=== PATIENT | female | born 1990 | race African-American/Black ===

== ENCOUNTER 2016-12-01 01:02 | Emergency (ER) | payer MEDICAID ==
--- NOTE | 2016-12-01 03:49 | ER Document Report ---
ED GI/ - General Mode of Arrival: Ambulatory Information source: Patient - HPI Patient complains to provider of: Other - see narrative Timing/Duration: Persistent Associated symptoms: Other - see narrative Similar symptoms previously: No Recently seen / treated by doctor: No - General Chief Complaint: Vaginal Pain Stated Complaint: VAGINAL PAIN Notes: Patient is a 26-year-old female that presents to the emergency department today for complaints of dysuria, vaginal discharge with odor, and urinary frequency. Patient states she is sexually active. Patient states she is concerned about possible STIs. Patient denies any abdominal pain, vomiting, or diarrhea. (HAN BOSWELL) - Related Data Allergies/Adverse Reactions: acetaminophen [From Vicodin] Allergy (Verified 04/10/13 10:12) hydrocodone bitartrate [From Vicodin] Allergy (Verified 04/10/13 10:12) Past Medical History - General Information source: Patient Last Menstrual Period: [id number] - Social History Smoking Status: Current Every Day Smoker Cigarette use (# per day): Yes Chew tobacco use (# tins/day): No Frequency of alcohol use: None Drug Abuse: None Lives with: Family Family History: Reviewed & Not Pertinent Patient has suicidal ideation: No Patient has homicidal ideation: No Pulmonary Medical History: Reports: Hx Pneumonia Neurological Medical History: Reports: Hx Migraine Renal/ Medical History: Reports: Hx Ovarian Cysts Musculoskeltal Medical History: Reports Hx Musculoskeletal Trauma Psychiatric Medical History: Reports: Hx Attention Deficit Hyperactivity Disorder, Hx Bipolar Disorder Traumatic Medical History: Reports: Hx Fractures Past Surgical History: Reports: Hx Adenoidectomy, Hx Tonsillectomy - 2002 adennoids - Immunizations Immunizations up to date: Yes Hx Diphtheria, Pertussis, Tetanus Vaccination: Yes Review of Systems - Review of Systems Constitutional: No symptoms reported EENT: No symptoms reported Cardiovascular: No symptoms reported Respiratory: No symptoms reported Gastrointestinal: denies: Abdominal pain, Diarrhea, Vomiting Genitourinary: See HPI, Burning, Dysuria, Discharge, Frequency, Pain Female Genitourinary: No symptoms reported Musculoskeletal: No symptoms reported Skin: No symptoms reported Hematologic/Lymphatic: No symptoms reported Neurological/Psychological: No symptoms reported -: Yes All other systems reviewed and negative Physical Exam - Genitourinary External exam: Normal, Other - no ulcers Speculum exam: Vaginal discharge - cottage cheese like - Vital signs Vitals: Temp Pulse Resp BP Pulse Ox 97.9 F 88 20 124/77 98 12/01/16 01:10 12/01/16 01:10 12/01/16 01:10 12/01/16 01:10 12/01/16 01:10 (HAN BOSWELL) (TANNER SEARS) - Notes Notes: Physical Exam: General: Alert, appears well. HEENT: Normocephalic. Atraumatic. PERRL. Extraocular movements intact. Oropharynx clear. Neck: Supple. Non-tender. Respiratory: No respiratory distress. Clear and equal breath sounds bilaterally. Cardiovascular: Regular rate and rhythm. Abdominal: Obese. Non-tender. No distension. Normal Bowel Sounds. Back: Non-tender. No deformity or step off. Extremities: Moves all four extremities. Upper extremities: Normal inspection. Non-tender. Normal color. Normal ROM. Normal temperature. Lower extremities: Normal inspection. Non-tender. No edema. Normal color. Normal ROM. Normal temperature. Neurological: Normal cognition. AAOx4. Normal speech. Psychological: Normal affect. Normal Mood. Skin: Warm. Dry. Normal color. (HAN BOSWELL) Course - Re-evaluation Re-evalutation: 12/01/16 Patient is a 26-year-old female who comes in with vaginal discharge. States it feels like a yeast infection and BV as she is itching and has a follow-up odor. Patient like to be tested for STDs but does not want to wait for results of gonorrhea and Chlamydia. Patient will be initiated with fluconazole and Flagyl. Follow-up with PMD. Return if any worsening or concerning symptoms. Patient will be called gonorrhea and chlamydia testing is positive. (TANNER SEARS) - Vital Signs Vital signs: Temp Pulse Resp BP Pulse Ox 97.9 F 78 16 107/62 100 12/01/16 01:10 12/01/16 05:11 12/01/16 05:11 12/01/16 05:11 12/01/16 05:11 (HAN BOSWELL) (TANNER SEARS) - Laboratory Laboratory results interpreted by me: 12/01/16 03:33 Ur Leukocyte Esterase MODERATE H Discharge - Discharge Clinical Impression: Bacterial vaginosis, Yeast infection Condition: Stable Disposition: ADMITTED INPATIENT Instructions: Vaginosis, Bacterial ([facility]), Vaginal Yeast Infection ([facility]) Prescriptions: Fluconazole [Diflucan] 150 mg PO ONCE PRN #1 tablet PRN Reason: Metronidazole [Flagyl 500 mg Tablet] 500 mg PO BID #14 tablet Scribe Attestation: 12/01/16 05:29 I personally performed the services described in the documentation, reviewed and edited the documentation which was dictated to the scribe in my presence, and it accurately records my words and actions. (TANNER SEARS) Scribe Documentation - Scribe Written by Robert:: Robert Nixon, [id number] 12/01/2016 acting as scribe for :: Rin
[2016-12-01] MEDS ORDERED: FLUCONAZOLE 100 MG TABLET PO ONE (03:51)
[2016-12-01] MEDS ORDERED: METRONIDAZOLE 500 MG TABLET PO ONE (04:36)
[2016-12-01 04:50] LABS: APPEARANCE,URINE SLIGHTLY-CLOUDY; BILIRUBIN,URINE NEGATIVE (NEGATIVE); GLUCOSE, URINE NEGATIVE (NEGATIVE); KETONES,URINE NEGATIVE (NEGATIVE); LEUKOCYTE ESTERASE,URINE MODERATE (NEGATIVE); NITRITE,URINE NEGATIVE (NEGATIVE); PROTEIN,URINE NEGATIVE (NEGATIVE); URINE SPECIFIC GRAVITY 1.015; UROBILINOGEN,URINE NEGATIVE mg/dL (<2.0)
[2016-12-01 05:14] VITALS: BP 107/62
[2016-12-01 05:55] LABS: CHLAM PCR NOT DETECTED (NOT DETECT)
== END 2016-12-01 05:14 | disposition home or self-care (01) ==
LOC: ER 01:02
DX: N76.0 Acute vaginitis (principal); B96.89 Other specified bacterial agents as the cause of diseases classified elsewhere; B37.9 Candidiasis, unspecified; F17.210 Nicotine dependence, cigarettes, uncomplicated; Z88.5 Allergy status to narcotic agent
CPT/HCPCS: 99283; 87210; 81001; 87491; 87591; J3490 ×2

== ENCOUNTER 2017-01-08 10:52 | Emergency (ER) | payer MEDICAID ==
--- NOTE | 2017-01-08 11:41 | ER Document Report ---
ED Medical Screen (RME) - General Stated Complaint: BODY PAIN Time seen by provider: 11:41 Mode of Arrival: Ambulatory Information source: Patient Notes: 26-year-old female complaining of sore throat runny nose congestion and cough with generalized body aches since Sunday. No flu shot. son had Positive Flu Test on December 25. I have greeted and performed a rapid initial assessment of this patient. A comprehensive ED assessment, evaluation of the patient, analysis of test results , and completion of the medical decision making process will be contacted by additional ED providers. TRAVEL OUTSIDE OF THE [place] IN LAST 30 DAYS: No - Related Data Allergies/Adverse Reactions: acetaminophen [From Vicodin] Allergy (Verified 01/08/17 11:38) hydrocodone bitartrate [From Vicodin] Allergy (Verified 01/08/17 11:38) Past Medical History - Social History Family history: Reviewed & Not Pertinent Pulmonary Medical History: Reports: Hx Pneumonia Neurological Medical History: Reports: Hx Migraine Renal/ Medical History: Reports: Hx Ovarian Cysts Musculoskeltal Medical History: Reports Hx Musculoskeletal Trauma Psychiatric Medical History: Reports: Hx Attention Deficit Hyperactivity Disorder, Hx Bipolar Disorder Traumatic Medical History: Reports: Hx Fractures Past Surgical History: Reports: Hx Adenoidectomy, Hx Tonsillectomy - 2002 adennoids - Immunizations Immunizations up to date: Yes Hx Diphtheria, Pertussis, Tetanus Vaccination: Yes Physical Exam - Vital signs Vitals: Temp Pulse Resp BP Pulse Ox 98.1 F 90 16 122/67 98 01/08/17 11:09 01/08/17 11:09 01/08/17 11:09 01/08/17 11:09 01/08/17 11:09 Course - Vital Signs Vital signs: Temp Pulse Resp BP Pulse Ox 98.1 F 90 16 122/67 98 01/08/17 11:09 01/08/17 11:09 01/08/17 11:09 01/08/17 11:09 01/08/17 11:09
--- NOTE | 2017-01-08 13:34 | ER Document Report ---
ED General - General Chief Complaint: Cold Symptoms Stated Complaint: BODY PAIN Time seen by provider: 13:30 Mode of Arrival: Ambulatory Information source: Patient Notes: 26-year-old female 2 day history of subjective fever chills diffuse headache nasal congestion sore throat body aches. She denies vomiting or diarrhea. She reports nonproductive cough for the past 2 days. She reports her son tested positive for flu about 2 weeks ago. Physical Exam: General: Alert, appears well. HEENT: Normocephalic. Atraumatic. PERRLA. Extraocular movements intact. Oropharynx clear. Neck: Supple. Non-tender. Respiratory: No respiratory distress. Clear and equal breath sounds bilaterally. Cardiovascular: Regular rate and rhythm. Abdominal: Normal Inspection. Soft, non-tender. No distension. Normal Bowel Sounds. Back: Non-tender. No deformity or step off. Extremities: Moves all four extremities. Upper extremities: Normal inspection. Non-tender. Normal color. Normal ROM. Normal temperature. Lower extremities: Normal inspection. Non-tender. No edema. Normal color. Normal ROM. Normal temperature. Neurological: Speech clear mentation normal Psychological: Normal affect. Normal Mood. Skin: Warm. Dry. Normal color. TRAVEL OUTSIDE OF THE [place] IN LAST 30 DAYS: No - Related Data Allergies/Adverse Reactions: acetaminophen [From Vicodin] Allergy (Verified 01/08/17 11:38) hydrocodone bitartrate [From Vicodin] Allergy (Verified 01/08/17 11:38) Past Medical History - General Information source: Patient - Social History Smoking Status: Current Every Day Smoker Chew tobacco use (# tins/day): Yes Frequency of alcohol use: None Drug Abuse: None Family History: Reviewed & Not Pertinent Patient has suicidal ideation: No Patient has homicidal ideation: No Pulmonary Medical History: Reports: Hx Pneumonia Neurological Medical History: Reports: Hx Migraine Renal/ Medical History: Reports: Hx Ovarian Cysts. Denies: Hx Peritoneal Dialysis Musculoskeltal Medical History: Reports Hx Musculoskeletal Trauma Psychiatric Medical History: Reports: Hx Attention Deficit Hyperactivity Disorder, Hx Bipolar Disorder Traumatic Medical History: Reports: Hx Fractures Past Surgical History: Reports: Hx Adenoidectomy, Hx Tonsillectomy - 2002 adennoids - Immunizations Immunizations up to date: Yes Hx Diphtheria, Pertussis, Tetanus Vaccination: Yes Review of Systems - Review of Systems Constitutional: See HPI EENT: See HPI Cardiovascular: denies: Chest pain Respiratory: See HPI Gastrointestinal: denies: Abdominal pain Genitourinary: denies: Burning Female Genitourinary: Last menstrual period - December 23 Musculoskeletal: denies: Back pain Skin: denies: Rash Hematologic/Lymphatic: denies: Swollen glands Neurological/Psychological: denies: Weakness, Numbness Physical Exam - Vital signs Vitals: Temp Pulse Resp BP Pulse Ox 98.1 F 90 16 122/67 98 01/08/17 11:09 01/08/17 11:09 01/08/17 11:09 01/08/17 11:09 01/08/17 11:09 Course - Re-evaluation Re-evalutation: 01/08/17 13:32 Patient has flu exposure and is endemic in the area but she is more than 48 hours out from beginning of symptoms and would not benefit from Tamiflu any case. Counseled to use [id number] medications for the usual symptoms - Vital Signs Vital signs: Temp Pulse Resp BP Pulse Ox 98.1 F 90 16 122/67 98 01/08/17 11:09 01/08/17 11:09 01/08/17 11:09 01/08/17 11:09 01/08/17 11:09 Discharge - Discharge Clinical Impression: Viral syndrome Condition: Stable Disposition: HOME, SELF-CARE Instructions: Viral Syndrome ([facility]) Forms: Return to Work Referrals: VIOLETTA AMADOR MD [Primary Care Provider] - Follow up as needed
[2017-01-08 17:08] VITALS: BP 102/65
== END 2017-01-08 13:44 | disposition home or self-care (01) ==
LOC: ER 10:52
DX: B34.9 Viral infection, unspecified (principal); R50.9 Fever, unspecified; R52 Pain, unspecified; R09.81 Nasal congestion; R51 Headache; R05 Cough; F17.210 Nicotine dependence, cigarettes, uncomplicated
CPT/HCPCS: 99283

== ENCOUNTER 2017-02-10 07:33 | Emergency (ER) | payer MEDICAID ==
--- NOTE | 2017-02-10 09:12 | ER Document Report ---
ED Oral Problem - General Chief Complaint: Toothache Stated Complaint: TOOTHACHE Time seen by provider: 09:21 Mode of Arrival: Ambulatory Notes: 26-year-old female presents to ED for dental pain to the left upper jaw tooth # 16 for the past 2 days TRAVEL OUTSIDE OF THE [place] IN LAST 30 DAYS: No - HPI Patient complains to provider of: Toothache Onset: Other - 2 days Onset: Gradual Quality of pain: Achy, Sharp Severity: Moderate Pain Level: 3 Associated symptoms: Toothache Worsened by: Cold Relieved by: Nothing Similar symptoms previously: Yes Recently seen / treated by doctor/dentist: No - Related Data Allergies/Adverse Reactions: acetaminophen [From Vicodin] Allergy (Verified 01/08/17 11:38) hydrocodone bitartrate [From Vicodin] Allergy (Verified 01/08/17 11:38) tramadol Allergy (Verified 02/10/17 07:35) Past Medical History - General Information source: Patient - Social History Smoking Status: Current Every Day Smoker Cigarette use (# per day): Yes - 4-5 cigarettes Chew tobacco use (# tins/day): No Smoking Education Provided: Yes - assessment 2 minutes Frequency of alcohol use: Social Drug Abuse: None Lives with: Family - Along with kids Family History: Malignancy, Thyroid Disfunction Patient has suicidal ideation: No Patient has homicidal ideation: No - Past Medical History Cardiac Medical History: Reports: None Pulmonary Medical History: Reports: Hx Pneumonia EENT Medical History: Reports: None Neurological Medical History: Reports: None, Hx Migraine Endocrine Medical History: Reports: None Renal/ Medical History: Reports: Hx Ovarian Cysts Malignancy Medical History: Reports: None GI Medical History: Reports: None Musculoskeltal Medical History: Reports Hx Musculoskeletal Trauma Skin Medical History: Reports None Psychiatric Medical History: Reports: Hx Attention Deficit Hyperactivity Disorder, Hx Bipolar Disorder Traumatic Medical History: Reports: Hx Fractures Infectious Medical History: Reports: None Past Surgical History: Reports: Hx Adenoidectomy, Hx Tonsillectomy - 2002 adennoids - Immunizations Immunizations up to date: Yes Hx Diphtheria, Pertussis, Tetanus Vaccination: Yes Review of Systems - Review of Systems Constitutional: No symptoms reported EENT: Dental problem Cardiovascular: No symptoms reported Respiratory: No symptoms reported Gastrointestinal: No symptoms reported Genitourinary: No symptoms reported Female Genitourinary: No symptoms reported Musculoskeletal: No symptoms reported Skin: No symptoms reported Hematologic/Lymphatic: No symptoms reported Neurological/Psychological: No symptoms reported -: Yes All other systems reviewed and negative Physical Exam - Vital signs Vitals: Temp Pulse Resp BP Pulse Ox 98.0 F 97 18 125/73 100 02/10/17 07:36 02/10/17 07:36 02/10/17 07:36 02/10/17 07:36 02/10/17 07:36 Interpretation: Normal - General General appearance: Appears well, Alert - HEENT Head: Normocephalic, Atraumatic Eyes: Normal Pupils: PERRL Ears: Normal External canal: Normal Tympanic membrane: Normal Nasal: Normal Mouth/Lips: Normal Mucous membranes: Normal Teeth diagram: 1 - Small cavities swelling around the tooth mild redness Pharynx: Normal Neck: Normal - Respiratory Respiratory status: No respiratory distress Chest status: Nontender Breath sounds: Normal Chest palpation: Normal - Cardiovascular Rhythm: Regular Heart sounds: Normal auscultation Murmur: No - Abdominal Inspection: Normal Distension: No distension Bowel sounds: Normal Tenderness: Nontender Organomegaly: No organomegaly - Back Back: Normal, Nontender - Extremities General upper extremity: Normal inspection, Nontender, Normal color, Normal ROM , Normal temperature General lower extremity: Normal inspection, Nontender, Normal color, Normal ROM , Normal temperature, Normal weight bearing. No: Liza's sign - Neurological Neuro grossly intact: Yes Cognition: Normal Orientation: AAOx4 Agustin Coma Scale Eye Opening: Spontaneous Wilson Coma Scale Verbal: Oriented Agustin Coma Scale Motor: Obeys Commands Wilson Coma Scale Total: 15 Speech: Normal Motor strength normal: LUE, RUE, LLE, RLE Sensory: Normal - Psychological Associated symptoms: Normal affect, Normal mood - Skin Skin Temperature: Warm Skin Moisture: Dry Skin Color: Normal Course - Re-evaluation Re-evalutation: 02/10/17 09:30 Patient will be discharged home with prescription for Percocet and penicillin patient to follow-up with dentist. - Vital Signs Vital signs: Temp Pulse Resp BP Pulse Ox 98.0 F 97 18 125/73 100 02/10/17 07:36 02/10/17 07:36 02/10/17 07:36 02/10/17 07:36 02/10/17 07:36 Discharge - Discharge Clinical Impression: Pain due to dental caries Condition: Stable Disposition: HOME, SELF-CARE Instructions: Dentist Additional Instructions: TOOTHACHE: Your pain is due to dental decay. The tooth must be repaired in order for you to feel better. You will, therefore, be referred to a dentist. We do not have dentists on the staff at [facility]. Severe swelling or drainage around a tooth usually means a dental abscess. This also requires evaluation and treatment by the dentist, but antibiotics may be prescribed while awaiting dental treatment. You should be rechecked immediately if you develop major swelling of the face, increasing pain, a lump in the jaw or gums, headache, difficulty swallowing, or fever. ORAL NARCOTIC MEDICATION: You have been given a prescription for pain control. This medication is a narcotic. It's best taken with food, as nausea can result if taken on an empty stomach. Don't operate machinery or drive within six hours of taking this medication. Do not combine this medicine with alcohol, or with any medication which can cause sedation (such as cold tablets or sleeping pills) unless you get permission from the physician. Narcotics tend to cause constipation. If possible, drink plenty of fluids and eat a diet high in fiber and fruits. Please be aware that prescription narcotics also have the potential for abuse. People become addicted to these medications because of the general sense of wellbeing that they induce. This feeling along with a significant reduction in tension, anxiety, and aggression provides a stimulating seductive quality to these drugs. Once your pain is under control, we encourage you to discard your unused narcotics. PENICILLIN V K: You have been given a prescription for Penicillin VK. Your physician has determined that this is the best antibiotic for your condition. Pen VK can be taken with meals, however more of the antibiotic gets into the bloodstream if it's taken on an empty stomach. Penicillin usually has no side effects. However, allergy to penicillins is common. If you have had an allergic reaction to any drug of the penicillin family, you should never take any other penicillin. Notify your doctor at once if you develop hives, itching, swelling, faintness, or shortness of breath. FOLLOW-UP CARE: You have been referred for follow-up care to the dentists listed below. Call the dentists office for an appointment as you were instructed or within the next two days. If you experience worsening or a significant change in your symptoms, notify the physician immediately or return to the Emergency Department at any time for re-evaluation. [facility] [address] [place], [place] mornings, by appointment [facility] [address] [place] [address] [facility] [place] [address] [facility] [address] [facility] [address] [email or web address] [facility] [address] [place] [address] Sunday- 8:00am to 5:00 pm Will see patients from other [facility]. Charges based on income and family size and accepts Medicare, Medicaid, and Insurances Will pull molars [facility] [id number] Hours of Operation 8:00 am - 4:30 pm weekdays The following dental offices accept Medicaid: [facility] Dr. Sauer Dr. Alvarez Dr. Beck Dr. Bryant Maurice Aparicio Lutsavage, and [place] oral surgery Dr. Moore ([place]) Dr. Aguilera ([place]) [facility] Drs. Victoria and Vikram ([place]) Dr. Ayala ([place]) [facility] Dr. Justice ([place]) Drs. Galloway and ([place]) Medicaid Care Line Prescriptions: Oxycodone HCl/Acetaminophen [Percocet 5-325 mg Tablet] 1 tab PO Q6HP PRN #8 tablet PRN Reason: Penicillin V Potassium [Penicillin Vk 500 mg Tablet] 500 mg PO BID #20 tablet Forms: Return to Work
[2017-02-10 09:54] VITALS: BP 118/70
== END 2017-02-10 09:55 | disposition home or self-care (01) ==
LOC: ER 07:33
DX: K02.9 Dental caries, unspecified (principal); K08.89 Other specified disorders of teeth and supporting structures; R68.84 Jaw pain; F17.210 Nicotine dependence, cigarettes, uncomplicated
CPT/HCPCS: 99282

== ENCOUNTER → 2017-03-15 | Outpatient (CLI) | payer MEDICAID ==
[2017-03-15 09:43] LABS: HEMATOCRIT 32.1 % (36.0-47.0); HEMOGLOBIN 10.1 g/dL (12.0-15.5); HGB HCT DIFFERENCE -1.8; MEAN CORPUSCULAR HEMOGLOBIN 20.2 pg (27.0-33.4); MEAN CORPUSCULAR HGB CONC 31.5 g/dL (32.0-36.0); RED BLOOD COUNT 5.02 10^6/uL (3.72-5.28); RED CELL DISTRIBUTION WIDTH 19.2 % (11.5-14.0)
[2017-03-15 10:07] LABS: ALANINE AMINOTRANSFERASE 24 U/L (9-52); ALBUMIN 3.9 g/dL (3.5-5.0); ALKALINE PHOSPHATASE 68 U/L (38-126); ANION GAP 13 (5-19); ASPARTATE AMINO TRANSFERASE 23 U/L (14-36); BILIRUBIN,DIRECT 0.2 mg/dL (0.0-0.4); BILIRUBIN,TOTAL 0.6 mg/dL (0.2-1.3); BLOOD UREA NITROGEN 15 mg/dL (7-20); CARBON DIOXIDE 23 mmol/L (22-30); CHLORIDE 106 mmol/L (98-107); CHOLESTEROL 165.64 mg/dL (0-200); CREATININE RESULT 0.78 mg/dL (0.52-1.25); Direct HDL 47 mg/dL (>40); GLUCOSE 87 mg/dL (75-110); POTASSIUM 4.4 mmol/L (3.6-5.0); SODIUM 141.5 mmol/L (137-145); TOTAL PROTEIN 6.6 g/dL (6.3-8.2); TRIGLYCERIDES 135 mg/dL (<150)
[2017-03-15 10:18] LABS: DIRECT LDL 91 mg/dL (<100)
[2017-03-15 10:20] LABS: MEAN CORPUSCULAR VOLUME 64 fl (80-97)
== END ==
LOC: OD 08:20
DX: F31.9 Bipolar disorder, unspecified (principal)
CPT/HCPCS: 36415; 80053; 80061; 83036; 84436; 84443; 85027

== ENCOUNTER 2017-06-07 11:36 | Emergency (ER) | payer MEDICAID ==
--- NOTE | 2017-06-07 12:26 | ER Document Report ---
HPI - HPI Pain Level: 3 Notes: Patient is a 26-year-old female presents the ED complaining of left medial knee pain status post twisting injury while at work yesterday. Patient states that she felt a pop. Patient states that she was still able to ambulate without any difficulties, but started noticing worsening discomfort by the evening. Patient states that it is an aching throbbing pain. She has not noticed any swelling or bruising. Patient did have one incident where it felt like he want to lock up, but did not give out on her. Denies any numbness or tingling. No other concerns or complaints at this time. Allergies listed above. Patient does take Adderall and Viibryd for a past medical history significant for bipolar, depression, ADHD. No other significant past medical history. Patient states that she does smoke but does not do any illicit drugs. Her PCM is [facility]. Denies any recent travel/illness/sick contacts. States immunizations are up-to-date. - ROS Notes: REVIEW OF SYSTEMS: CONSTITUTIONAL : Denies fever, chills, or sweats. Denies recent illness. EENT: Denies eye, ear, throat, or mouth pain or symptoms. Denies nasal or sinus congestion or discharge. Denies throat, tongue, or mouth swelling or difficulty swallowing. CARDIOVASCULAR: Denies chest pain. Denies palpitations or racing or irregular heart beat. Denies ankle edema. RESPIRATORY: Denies cough, cold, or chest congestion. Denies shortness of breath, difficulty breathing, or wheezing. GASTROINTESTINAL: Denies abdominal pain or distention. Denies nausea, vomiting , or diarrhea. Denies blood in vomitus, stools, or per rectum. Denies black, tarry stools. Denies constipation. GENITOURINARY: Denies difficulty urinating, painful urination, burning, frequency, blood in urine, or discharge. MUSCULOSKELETAL: see hpi SKIN: Denies rash, lesions or sores. NEUROLOGICAL: Denies confusion or altered mental status. Denies passing out or loss of consciousness. Denies dizziness or lightheadedness. Denies headache. Denies weakness or paralysis or loss of use of either side. Denies problems with gait or speech. Denies sensory loss, numbness, or tingling. ALL OTHER SYSTEMS REVIEWED AND NEGATIVE. Dictation was performed using [employer] voice recognition software - REPRODUCTIVE Reproductive: DENIES: : - DERM Skin Color: Normal Past Medical History - Social History Smoking Status: Current Every Day Smoker Chew tobacco use (# tins/day): No Drug Abuse: None Family History: Malignancy, Thyroid Disfunction Patient has suicidal ideation: No Patient has homicidal ideation: No Pulmonary Medical History: Reports: Hx Pneumonia Neurological Medical History: Reports: Hx Migraine Renal/ Medical History: Reports: Hx Ovarian Cysts. Denies: Hx Peritoneal Dialysis Musculoskeltal Medical History: Reports Hx Musculoskeletal Trauma Psychiatric Medical History: Reports: Hx Attention Deficit Hyperactivity Disorder, Hx Bipolar Disorder, Hx Depression Traumatic Medical History: Reports: Hx Fractures Past Surgical History: Reports: Hx Adenoidectomy, Hx Tonsillectomy - 2002 adennoids - Immunizations Immunizations up to date: Yes Hx Diphtheria, Pertussis, Tetanus Vaccination: Yes Vertical Provider Document - CONSTITUTIONAL Agree With Documented VS: Yes Notes: PHYSICAL EXAMINATION: GENERAL: Well-appearing, well-nourished and in no acute distress. LUNGS: Breath sounds clear to auscultation bilaterally and equal. No wheezes rales or rhonchi. HEART: Regular rate and rhythm without murmurs, rubs, gallops. Musculoskeletal: Lt knee: FROM to passive/active. Strength 5+/5. No ecchymosis , abrasion, laceration, swelling, or deformity noted. Ligamentous stable. Ivory negative. + medial joint line tenderness. Liza negative. Tendons intact. Extremities: No cyanosis, clubbing, or edema b/l. Peripheral pulses 2+. Capillary refill less than 3 seconds. NEUROLOGICAL: Normal speech, normal gait. Normal sensory, motor exams PSYCH: Normal mood, normal affect. SKIN: Warm, Dry, normal turgor, no rashes or lesions noted. - INFECTION CONTROL TRAVEL OUTSIDE OF THE [place] IN LAST 30 DAYS: No - RESPIRATORY O2 Sat by Pulse Oximetry: 98 Course - Re-evaluation Re-evalutation: 06/07/17 13:10 Femoral, well-hydrated, 26-year-old female presents the ED complaining of left knee pain, suspect possible internal involvement with meniscus based on H&P today; Although, low suspicion at this time. Vitals are stable. PE otherwise unremarkable. Low suspicion for any septic joint, sepsis, or other systemic illness. X-ray of the left knee was unremarkable for any acute fracture or dislocation. Patient is still able to inflate without any difficulties, and I would like her to continue to use her knee as she is able. No immobilizer or crutches will be provided today, and patient is in agreement with this. I will send her home with a prescription for Voltaren gel to use as directed. Conservative measures for symptoms. Recheck with her PCM in 2-3 days for further evaluation and workup. Consider consult with orthopedics and physical therapy. Return to ED with any worsening/concerning symptoms as reviewed in discharge. Patient is in agreement. - Vital Signs Vital signs: Temp Pulse Resp BP Pulse Ox 98.0 F 107 H 18 113/72 98 06/07/17 11:46 06/07/17 11:46 06/07/17 11:46 06/07/17 11:46 06/07/17 11:46 Discharge - Discharge Clinical Impression: Left medial knee pain Instructions: Ice & Elevation ([facility]), Suspected Internal Knee Injury ([facility]), Sprained Knee ([facility]) Additional Instructions: Rest, Ice, Compression, Elevation May use nikhil-wrap if needed Tylenol/ibuprofen as needed Light stretches daily Strength exercises as able Moist heat and massage may help F/u with your PCP in 2-3 days for a recheck Consider consult(s) with Orthopedics, physical therapy for ongoing/worsening symptoms Return to the ED with any worsening pain, swelling, numbness/tingling, muscle weakness, development of fever, redness, warmth, bruising, or any other worsening/concerning symptoms as needed. Prescriptions: Diclofenac Sodium [Voltaren] 4 gm TP QID PRN #100 gel..gm. PRN Reason: Forms: Smoking Cessation Education Referrals: [facility] ([facility]) [Provider Group] - Follow up as needed
--- NOTE | 2017-06-07 12:53 | RADIOLOGY REPORT (SQ) ---
EXAM DESCRIPTION: KNEE LEFT 4 VIEW COMPLETED DATE/TIME: 06/07/2017 12:35 pm REASON FOR STUDY: left knee pain, medial COMPARISON: None. NUMBER OF VIEWS: Four views. TECHNIQUE: AP, lateral, and both oblique radiographic images acquired of the left knee. LIMITATIONS: None. FINDINGS: MINERALIZATION: Normal. BONES: No acute fracture or dislocation. No worrisome bone lesions. JOINT: No effusion. SOFT TISSUES: No soft tissue swelling. No radio-opaque foreign body. OTHER: No other significant finding. IMPRESSION: NEGATIVE STUDY OF THE LEFT KNEE. NO RADIOGRAPHIC EVIDENCE OF ACUTE INJURY. TECHNICAL DOCUMENTATION: JOB ID: [id number] [employer]- All Rights Reserved
[2017-06-07 13:29] VITALS: BP 118/67
== END 2017-06-07 13:25 | disposition home or self-care (01) ==
LOC: ER 11:36
DX: M25.562 Pain in left knee (principal); F31.9 Bipolar disorder, unspecified; F32.9 Major depressive disorder, single episode, unspecified; F90.9 Attention-deficit hyperactivity disorder, unspecified type; F17.200 Nicotine dependence, unspecified, uncomplicated; Z79.899 Other long term (current) drug therapy; X50.1XXA Overexertion from prolonged static or awkward postures, initial encounter
CPT/HCPCS: 99283

== ENCOUNTER 2017-07-13 00:13 | Emergency (ER) | payer MEDICAID ==
--- NOTE | 2017-07-13 00:26 | ER Document Report ---
ED Psych Disorder / Suicide - General Mode of Arrival: Medic Information source: Patient TRAVEL OUTSIDE OF THE [place] IN LAST 30 DAYS: No <RICHARD MENDOZA - Last Filed: 07/13/17 05:11> <TANNER SEARS - Last Filed: 07/13/17 05:43> - General Stated Complaint: SI Time Seen by Provider: 07/13/17 00:25 Notes: Patient is a 27-year-old female presenting to the emergency department for possible suicidal ideation. Patient reports to have suicidal thoughts due to breakup with a boyfriend in finding out that he is HIV positive. Patient is requesting to be HIV tested along with testing for gonorrhea and chlamydia. Patient would also like to be treated for bacterial vaginosis because she states she is having a strong odor to her vagina. Patient states that she last was sexually active with this person on Sunday. Patient poked herself in the left wrist with a safety plan and denies cutting her arm or pain to settle. Patient states her mother called 911 because she was "having anxiety and overreacting." Patient states that she does see a mental health counselor for depression, anxiety, ADHD, bipolar and intermittent explosive disorders. Patient denies being suicidal or homicidal during the exam. (RICHARD MENDOZA) - Related Data Allergies/Adverse Reactions: acetaminophen [From Vicodin] Allergy (Verified 06/07/17 11:47) hydrocodone bitartrate [From Vicodin] Allergy (Verified 06/07/17 11:47) tramadol Allergy (Verified 06/07/17 11:47) Past Medical History - General Information source: Patient - Social History Smoking Status: Unknown if Ever Smoked Family History: Malignancy, Thyroid Disfunction Patient has suicidal ideation: No Patient has homicidal ideation: No Pulmonary Medical History: Reports: Hx Pneumonia Neurological Medical History: Reports: Hx Migraine Renal/ Medical History: Reports: Hx Ovarian Cysts Musculoskeltal Medical History: Reports Hx Musculoskeletal Trauma Psychiatric Medical History: Reports: Hx Attention Deficit Hyperactivity Disorder, Hx Bipolar Disorder, Hx Depression Traumatic Medical History: Reports: Hx Fractures Past Surgical History: Reports: Hx Adenoidectomy - 2003, Hx Tonsillectomy - Immunizations Immunizations up to date: Yes Hx Diphtheria, Pertussis, Tetanus Vaccination: Yes <RICHARD MENDOZA - Last Filed: 07/13/17 05:11> Review of Systems - Review of Systems Constitutional: No symptoms reported EENT: No symptoms reported Cardiovascular: No symptoms reported Respiratory: No symptoms reported Gastrointestinal: No symptoms reported Genitourinary: No symptoms reported Female Genitourinary: See HPI, Vaginal odor Musculoskeletal: No symptoms reported Skin: No symptoms reported Hematologic/Lymphatic: No symptoms reported Neurological/Psychological: See HPI -: Yes All other systems reviewed and negative <RICHARD MENDOZA - Last Filed: 07/13/17 05:11> Physical Exam - Vital signs Interpretation: Tachycardic <RICHARD MENDOZA - Last Filed: 07/13/17 05:11> <TANNER SEARS - Last Filed: 07/13/17 05:43> - Vital signs Vitals: Temp Pulse Resp BP Pulse Ox 98.5 F 112 H 18 138/93 H 98 07/13/17 00:31 07/13/17 00:31 07/13/17 00:31 07/13/17 00:31 07/13/17 00:31 - Notes Notes: GENERAL: Alert, interacts well, sleeping, easily arousable. No acute distress. HEAD: Normocephalic, atraumatic. EYES: Appear normal. Pupils equal, round, and reactive to light. ENT: Moist mucus membranes, tongue midline. NECK: Full range of motion. Supple. Trachea midline. LUNGS: Clear to auscultation bilaterally, no wheezes, rales, or rhonchi. No respiratory distress. HEART: Regular rate and rhythm. No murmurs, gallops, or rubs. ABDOMEN: Soft, non-tender. Non-distended. Normal bowel sounds. EXTREMITIES: Moves all 4 extremities spontaneously. Normal strength. No edema. NEUROLOGICAL: Alert and oriented x3. Normal speech. No focal neurological deficits. GSC 15. PSYCH: Normal affect, normal mood. SKIN: Warm, dry, normal turgor. No rashes or lesions noted. (RICHARD MENDOZA) Course - Laboratory Result Diagrams: 07/13/17 00:55 07/13/17 00:55 <RICHARD MENDOZA - Last Filed: 07/13/17 05:11> - Laboratory Result Diagrams: 07/13/17 00:55 07/13/17 00:55 <TANNER SEARS - Last Filed: 07/13/17 05:43> - Re-evaluation Re-evalutation: 07/13/17 05:41 Patient is a 27-year-old female who is brought in for apparent suicidal ideation. Patient states that she became upset when she was told that her significant other who she has been recently sexually active with was diagnosed with HIV after a term in [place] [facility]. Patient is HIV negative at this time. She has been instructed to follow-up with her doctor for testing at 6 and 12 months. Patient is not suicidal or homicidal. No hallucinations. Patient and her mother able to contract for her safety at this time. Patient also concerned about gonorrhea and chlamydia. Also states that she has BV as she has had before I would like Flagyl and be treated for it. She does not want a pelvic exam or swabs at this time. Patient is medically and psychiatrically stable. She will be discharged home with her mother. Return if any worsening or concerning symptoms. She is to follow-up with her counselor as soon as she is able. Understands and agrees with plan. (TANNER SEARS) - Vital Signs Vital signs: Temp Pulse Resp BP Pulse Ox 97.4 F 100 18 111/67 100 07/13/17 04:42 07/13/17 04:42 07/13/17 04:42 07/13/17 04:42 07/13/17 04:42 - Laboratory Laboratory results interpreted by me: 07/13/17 07/13/17 00:55 00:55 WBC 11.4 H RBC 5.31 H Hgb 10.4 L Hct 34.3 L MCV 65 L MCH 19.6 L MCHC 30.4 L RDW 19.4 H Salicylates < 1.0 L Acetaminophen < 10 L Discharge <RICHARD MENDOZA - Last Filed: 07/13/17 05:11> <TANNER SEARS - Last Filed: 07/13/17 05:43> - Discharge Clinical Impression: Anxiety, Bacterial vaginosis Condition: Stable Disposition: HOME, SELF-CARE Instructions: Anxiety ([facility]), Vaginosis, Bacterial ([facility]) Additional Instructions: Please follow-up with your [facility] at 6 and 12 months for repeat HIV testing. Please follow-up with your mental health counselor as soon as you are able to do so. Return if you have any worsening or concerning symptoms. Prescriptions: Metronidazole [Flagyl 500 mg Tablet] 500 mg PO BID #14 tablet Scribe Attestation: 07/13/17 05:43 I personally performed the services described in the documentation, reviewed and edited the documentation which was dictated to the scribe in my presence, and it accurately records my words and actions. (TANNER SEARS) Scribe Documentation - Scribe Written by Scrcassidye:: Robert Nunez, 07/13/2017 5:00 acting as scribe for :: Rin <RICHARD MENDOZA - Last Filed: 07/13/17 05:11>
[2017-07-13 01:29] LABS: APPEARANCE,URINE CLEAR; BILIRUBIN,URINE NEGATIVE (NEGATIVE); GLUCOSE, URINE NEGATIVE (NEGATIVE); KETONES,URINE NEGATIVE (NEGATIVE); LEUKOCYTE ESTERASE,URINE NEGATIVE (NEGATIVE); NITRITE,URINE NEGATIVE (NEGATIVE); PROTEIN,URINE NEGATIVE (NEGATIVE); URINE SPECIFIC GRAVITY 1.002; UROBILINOGEN,URINE NEGATIVE mg/dL (<2.0)
[2017-07-13 01:41] LABS: ALANINE AMINOTRANSFERASE 30 U/L (9-52); ALBUMIN 4.2 g/dL (3.5-5.0); ALKALINE PHOSPHATASE 82 U/L (38-126); ANION GAP 10 (5-19); ASPARTATE AMINO TRANSFERASE 27 U/L (14-36); BILIRUBIN,DIRECT 0.4 mg/dL (0.0-0.4); BILIRUBIN,TOTAL 0.4 mg/dL (0.2-1.3); BLOOD UREA NITROGEN 10 mg/dL (7-20); CALCIUM 9.5 mg/dL (8.4-10.2); CARBON DIOXIDE 27 mmol/L (22-30); CHLORIDE 104 mmol/L (98-107); CREATININE RESULT 0.71 mg/dL (0.52-1.25); GLUCOSE 103 mg/dL (75-110); POTASSIUM 4.1 mmol/L (3.6-5.0); SODIUM 141.4 mmol/L (137-145); TOTAL PROTEIN 7.5 g/dL (6.3-8.2)
[2017-07-13 01:42] LABS: ALCOHOL < 10 mg/dL (NONE DETECTED)
[2017-07-13 01:53] LABS: URINE BARBITURATES SCREEN NEGATIVE; URINE METHADONE SCREEN NEGATIVE; URINE OPIATES LOW NEGATIVE; URINE PHENCYCLIDINE SCREEN NEGATIVE
[2017-07-13 01:55] LABS: ABSOLUTE BASOPHILS # (AUTO) 0.1 10^3/uL (0.0-0.2); ABSOLUTE EOSINOPHILS # (AUTO) 0.5 10^3/uL (0.0-0.6); ABSOLUTE LYMPHOCYTES (AUTO) 3.3 10^3/uL (0.5-4.7); ABSOLUTE MONOCYTES (AUTO) 0.6 10^3/uL (0.1-1.4); BASOPHILS % (AUTO) 0.9 % (0-2); EOSINOPHILS % (AUTO) 4.2 % (0-6); HEMATOCRIT 34.3 % (36.0-47.0); HEMOGLOBIN 10.4 g/dL (12.0-15.5); HGB HCT DIFFERENCE -3.1; LYMPHOCYTES % (AUTO) 28.5 % (13-45); MEAN CORPUSCULAR HEMOGLOBIN 19.6 pg (27.0-33.4); MEAN CORPUSCULAR HGB CONC 30.4 g/dL (32.0-36.0); MEAN CORPUSCULAR VOLUME 65 fl (80-97); MONOCYTES % (AUTO) 5.6 % (3-13); RED BLOOD COUNT 5.31 10^6/uL (3.72-5.28); RED CELL DISTRIBUTION WIDTH 19.4 % (11.5-14.0); SEGMENTED NEUTROPHILS % (AUTO) 60.8 % (42-78); WHITE BLOOD COUNT 11.4 10^3/uL (4.0-10.5)
[2017-07-13 01:58] LABS: ANISOCYTOSIS 2+; HYPOCHROMASIA 2+; MICROCYTOSIS 3+; OVALOCYTES SLIGHT; POIKILOCYTOSIS SLIGHT; POLYCHROMASIA SLIGHT; TOXIC GRANULATION SLIGHT
[2017-07-13 02:39] LABS: ADD HIVPANEL? NO; HIV (1 AND 2) ANTIBODY NEGATIVE (NEGATIVE)
[2017-07-13] MEDS ORDERED: METRONIDAZOLE 500 MG TABLET PO ONE (04:23)
[2017-07-13] MEDS ORDERED: ONDANSETRON 4 MG TAB.RAPDIS PO ONE (04:23)
[2017-07-13 06:06] LABS: CHLAM PCR NOT DETECTED (NOT DETECT)
[2017-07-13 07:13] VITALS: BP 104/57
--- NOTE | 2017-07-13 07:58 | EKG REPORT ---
SEVERITY:- NORMAL ECG - SINUS RHYTHM : Confirmed by: Abebe Acharya MD 13-Jul-2017 07:58:21
== END 2017-07-13 07:05 | disposition home or self-care (01) ==
LOC: ER 00:13
DX: R45.851 Suicidal ideations (principal); F41.9 Anxiety disorder, unspecified
CPT/HCPCS: 93005; 99284; 36415; 80307 ×4; 84703; 85025; 80053; 81001; 86701; 87491; 87591; 93010; S0119; J3490

== ENCOUNTER 2017-07-20 08:16 | Emergency (ER) | payer MEDICAID ==
[2017-07-20 08:53] VITALS: BP 121/70
--- NOTE | 2017-07-20 09:19 | ER Document Report ---
HPI - HPI Pain Level: 4 Notes: Patient is a 27-year-old female who presents the ED complaining of nonspecific anterior left arm pain 4 days. Patient states that she may have slept on it wrong, and denies any injury. Patient states she has been using over-the- counter meds and Voltaren gel with minimal relief. The pain does not radiate. The pain is described as an ache. Patient states that she is still able to use her arm but does notice occasional discomfort. Patient states that she feels like there is an occasional numbness as well. Pt denies any signs of infection to the arm. Patient denies any other significant past medical history. She sees family urgent [facility]. Denies any headache, fever, head injury, neck pain, URI, sore throat, chest pain, palpitations, syncope, cough, shortness of breath , wheeze, dyspnea, abdominal pain, nausea/vomiting/diarrhea, urinary retention, dysuria, hematuria, muscle paralysis/weakness, or rash. - ROS Notes: REVIEW OF SYSTEMS: CONSTITUTIONAL : Denies fever, chills, or sweats. Denies recent illness. EENT: Denies eye, ear, throat, or mouth pain or symptoms. Denies nasal or sinus congestion or discharge. Denies throat, tongue, or mouth swelling or difficulty swallowing. CARDIOVASCULAR: Denies chest pain. Denies palpitations or racing or irregular heart beat. Denies ankle edema. RESPIRATORY: Denies cough, cold, or chest congestion. Denies shortness of breath, difficulty breathing, or wheezing. GASTROINTESTINAL: Denies abdominal pain or distention. Denies nausea, vomiting , or diarrhea. Denies blood in vomitus, stools, or per rectum. Denies black, tarry stools. Denies constipation. GENITOURINARY: Denies difficulty urinating, painful urination, burning, frequency, blood in urine, or discharge. MUSCULOSKELETAL: see hpi SKIN: Denies rash, lesions or sores. NEUROLOGICAL: Denies confusion or altered mental status. Denies passing out or loss of consciousness. Denies dizziness or lightheadedness. Denies headache. Denies weakness or paralysis or loss of use of either side. Denies problems with gait or speech. Denies sensory loss, numbness, or tingling. ALL OTHER SYSTEMS REVIEWED AND NEGATIVE. Dictation was performed using [employer] voice recognition software - REPRODUCTIVE Reproductive: DENIES: : - DERM Skin Color: Normal Past Medical History - Social History Smoking Status: Unknown if Ever Smoked Family History: Malignancy, Thyroid Disfunction Patient has suicidal ideation: No Patient has homicidal ideation: No Pulmonary Medical History: Reports: Hx Pneumonia Neurological Medical History: Reports: Hx Migraine Renal/ Medical History: Reports: Hx Ovarian Cysts. Denies: Hx Peritoneal Dialysis Musculoskeltal Medical History: Reports Hx Musculoskeletal Trauma Psychiatric Medical History: Reports: Hx Attention Deficit Hyperactivity Disorder, Hx Bipolar Disorder, Hx Depression Traumatic Medical History: Reports: Hx Fractures Past Surgical History: Reports: Hx Adenoidectomy - 2003, Hx Tonsillectomy - Immunizations Immunizations up to date: Yes Hx Diphtheria, Pertussis, Tetanus Vaccination: Yes Vertical Provider Document - CONSTITUTIONAL Agree With Documented VS: Yes Notes: PHYSICAL EXAMINATION: GENERAL: Well-appearing, well-nourished and in no acute distress. NECK: Normal range of motion, supple without lymphadenopathy. Spurling neg. Non -tender. LUNGS: Breath sounds clear to auscultation bilaterally and equal. No wheezes rales or rhonchi. HEART: Regular rate and rhythm without murmurs, rubs, gallops. Musculoskeletal: Lt arm: FROM to passive/active. Strength 5+/5. + mild tenderness to the biceps, no rupture. No obvious lymphadenopathy present. Pulses 2+. N/V intact distal. No focal deficits noted. No erythema, warmth, cord, ecchymosis, abrasion, laceration, swelling, or deformity noted. Extremities: No cyanosis, clubbing, or edema b/l. Peripheral pulses 2+. Capillary refill less than 3 seconds. NEUROLOGICAL: Normal speech, normal gait. Normal sensory, motor exams PSYCH: Normal mood, normal affect. SKIN: Warm, Dry, normal turgor, no rashes or lesions noted. - INFECTION CONTROL TRAVEL OUTSIDE OF THE [place] IN LAST 30 DAYS: No - RESPIRATORY O2 Sat by Pulse Oximetry: 98 Course - Re-evaluation Re-evalutation: 07/20/17 09:48 Patient is an afebrile, well-hydrated, 27-year-old female who presents the ED with nonspecific left arm pain, suspect inflammatory. Vitals are stable. PE unremarkable. No imaging is warranted at this time based on H&P. Low suspicion for any infection, sepsis, disc herniation causing severe spinal stenosis, or blood clot at this time. Patient is aware that her condition can change from initial presentation and she needs to monitor symptoms closely and seek medical attention if any acute changes. Recommend conservative measures for symptoms. Recheck with her PCM in 2-3 days. Consider consult with orthopedics and physical therapy. Return to the ED with any worsening/ concerning symptoms otherwise as reviewed discharge. Patient is in agreement. - Vital Signs Vital signs: Temp Pulse Resp BP Pulse Ox 98.5 F 105 H 12 121/70 98 07/20/17 08:51 07/20/17 08:51 07/20/17 08:51 07/20/17 08:51 07/20/17 08:51 Discharge - Discharge Clinical Impression: Arm pain, left Condition: Stable Disposition: HOME, SELF-CARE Instructions: Arm Pain, Nonspecific ([facility]), Ice & Elevation ([facility]), Warm Packs ( [facility]) Additional Instructions: Rest, Ice, Compression, Elevation Tylenol/ibuprofen as needed Light stretches daily Strength exercises as able Moist heat and massage may help F/u with your PCP in 2-3 days for a recheck Consider consult(s) with Orthopedics/physical therapy for ongoing/worsening symptoms Return to the ED with any worsening symptoms and/or development of fever, headache, chest pain, palpitations, syncope, shortness of breath, trouble breathing, abdominal pain, n/v/d, muscle weakness/paralysis, numbness/tingling, swelling, redness, or other worsening symptoms that are concerning to you. Referrals: [facility] [Provider Group] - Follow up as needed
== END 2017-07-20 09:26 | disposition home or self-care (01) ==
LOC: ER 08:16
DX: M79.602 Pain in left arm (principal)
CPT/HCPCS: 99283

== ENCOUNTER 2017-07-31 02:19 | Emergency (ER) | payer MEDICAID ==
[2017-07-31 02:25] VITALS: BP 131/81
--- NOTE | 2017-07-31 03:37 | RADIOLOGY REPORT (SQ) ---
EXAM DESCRIPTION: NOSE/NASAL BONES COMPLETED DATE/TIME: 07/31/2017 3:22 am REASON FOR STUDY: trauma COMPARISON: None. NUMBER OF VIEWS: Three view. TECHNIQUE: Images of the facial bones acquired. LIMITATIONS: Motion artifact. FINDINGS: There is a nondisplaced fracture at the nasal bone. No significant soft tissue swelling o r radiopaque foreign body. IMPRESSION: Nondisplaced fracture at the nasal bone. TECHNICAL DOCUMENTATION: JOB ID: [id number] [employer]- All Rights Reserved
[2017-07-31] MEDS ORDERED: IBUPROFEN 600 MG TABLET PO ONE (03:47)
[2017-07-31] MEDS ORDERED: MORPHINE SULFATE IR 15 MG TABLET PO ONE (03:47)
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
== END 2017-07-31 04:23 | disposition home or self-care (01) ==
LOC: ER 02:19
DX: S09.90XA Unspecified injury of head, initial encounter (principal); S02.2XXA Fracture of nasal bones, initial encounter for closed fracture; Y04.0XXA Assault by unarmed brawl or fight, initial encounter; F17.200 Nicotine dependence, unspecified, uncomplicated; Z88.6 Allergy status to analgesic agent
CPT/HCPCS: 99283; 70160; J3490

== ENCOUNTER 2017-08-07 15:40 | Emergency (ER) | payer MEDICAID ==
[2017-08-07] MEDS ORDERED: HYDROCODONE/ACETAMINOPHEN 5-325 MG 6 TAB/DSPK PO PRN (17:11)
--- NOTE | 2017-08-07 17:16 | ER Document Report ---
ED Extremity Problem, Lower - General Chief Complaint: Foot Pain Stated Complaint: FOOT PAIN Time Seen by Provider: 08/07/17 16:17 Mode of Arrival: Ambulatory Information source: Patient Notes: 27-year-old female presents to ED for complaint of right foot pain to the bottom of her foot. She states is intermittent numbness and throbbing. She walks with a steady gait. She wakes up at night due to the pain. She states the pain is been going on for 4-5 days. She denies any injury. She states she goes to the family urgent care but no one is known what was going on with her foot. TRAVEL OUTSIDE OF THE [place] IN LAST 30 DAYS: No - HPI Patient complains to provider of: Pain. No: Injury, Swelling Location: Foot Occurred: Other - 4-5 days Onset/Duration: Gradual Quality of pain: Burning, Other - numbness Severity: Moderate Pain Level: 3 Recent injury: No Associated symptoms: Painful ambulation Exacerbated by: Walking Relieved by: Nothing - Related Data Allergies/Adverse Reactions: tramadol Allergy (Verified 08/07/17 15:50) Home Medications: Current Home Medications No Home Medications 08/07/17 [History] Past Medical History - General Information source: Patient - Social History Smoking Status: Current Every Day Smoker Cigarette use (# per day): Yes - 4 cigarettes a day Chew tobacco use (# tins/day): No Smoking Education Provided: Yes - Less than 2 minutes Frequency of alcohol use: Occasional Drug Abuse: None Lives with: Family - Parent and kids Family History: Malignancy, Thyroid Disfunction Patient has suicidal ideation: No Patient has homicidal ideation: No - Past Medical History Cardiac Medical History: Reports: None Pulmonary Medical History: Reports: Hx Pneumonia EENT Medical History: Reports: None Neurological Medical History: Reports: Hx Migraine Endocrine Medical History: Reports: None Renal/ Medical History: Reports: Hx Ovarian Cysts Malignancy Medical History: Reports: None GI Medical History: Reports: None Musculoskeltal Medical History: Reports Hx Musculoskeletal Trauma Skin Medical History: Reports None Psychiatric Medical History: Reports: Hx Attention Deficit Hyperactivity Disorder, Hx Bipolar Disorder, Hx Depression Traumatic Medical History: Reports: Hx Fractures - Left fifth finger and nose Infectious Medical History: Reports: None Past Surgical History: Reports: Hx Adenoidectomy - 2003, Hx Tonsillectomy - Immunizations Immunizations up to date: Yes Hx Diphtheria, Pertussis, Tetanus Vaccination: Yes Review of Systems - Review of Systems Constitutional: No symptoms reported EENT: No symptoms reported Cardiovascular: No symptoms reported Respiratory: No symptoms reported Gastrointestinal: No symptoms reported Genitourinary: No symptoms reported Female Genitourinary: No symptoms reported Musculoskeletal: Other - Bilateral foot pain worse on the right no injuries but pain is burning with sometimes numbness Skin: No symptoms reported Hematologic/Lymphatic: No symptoms reported Neurological/Psychological: No symptoms reported -: Yes All other systems reviewed and negative Physical Exam - Vital signs Vitals: Temp Pulse Resp BP Pulse Ox 98.7 F 102 H 18 124/82 98 08/07/17 15:48 08/07/17 15:48 08/07/17 15:48 08/07/17 15:48 08/07/17 15:48 Interpretation: Normal - General General appearance: Appears well, Alert - HEENT Head: Normocephalic, Atraumatic Eyes: Normal Pupils: PERRL - Respiratory Respiratory status: No respiratory distress Chest status: Nontender Breath sounds: Normal Chest palpation: Normal - Cardiovascular Rhythm: Regular Heart sounds: Normal auscultation Murmur: No - Abdominal Inspection: Normal Distension: No distension Bowel sounds: Normal Tenderness: Nontender Organomegaly: No organomegaly - Back Back: Normal, Nontender - Extremities General upper extremity: Normal inspection, Nontender, Normal color, Normal ROM , Normal temperature General lower extremity: Normal inspection, Normal color, Normal ROM, Normal temperature. No: Liza's sign Foot: Tender - Burning to the bottom of the foot, No evidence of FB. No: Abrasion, Deformity, Ecchymosis, Edema, Instability, Laceration, Metatarsal compress. pain, Nail injury, Navicular tenderness, Puncture wound, Tender 5th metatarsal, Unable to bear weight - Neurological Neuro grossly intact: Yes Cognition: Normal Orientation: AAOx4 [place] Coma Scale Eye Opening: Spontaneous [place] Coma Scale Verbal: Oriented Agustin Coma Scale Motor: Obeys Commands Agustin Coma Scale Total: 15 Speech: Normal Motor strength normal: LUE, RUE, LLE, RLE Sensory: Normal - Psychological Associated symptoms: Normal affect, Normal mood - Skin Skin Temperature: Warm Skin Moisture: Dry Skin Color: Normal Course - Re-evaluation Re-evalutation: 08/07/17 19:38 X-ray never negative discussed with patient patient was discharged with the instructions for ice elevation foot exercises and 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 - Vital Signs Vital signs: Temp Pulse Resp BP Pulse Ox 98.6 F 96 16 119/65 99 08/07/17 17:28 08/07/17 17:28 08/07/17 17:28 08/07/17 17:28 08/07/17 17:28 - Diagnostic Test Radiology reviewed: Image reviewed, Reports reviewed Discharge - Discharge Clinical Impression: Right foot pain Condition: Stable Disposition: HOME, SELF-CARE Instructions: Exercises for the Foot Muscles ([facility]) Additional Instructions: You were seen today for pain in the plantar surface or bottom of your right foot. He denies any injuries falls or broken bones. Plantar Fasciitis or Heel Spur Plantar fasciitis is an inflammation of a ligament on the underside of the foot. It can be caused by injury, overuse such as running, or poorly fitting shoes. There may be a bone spur on the heel if inflammation has persisted a long time. Plantar fasciitis is treated with stretching exercises and antiinflammatory medicine. More severe cases may require injection of cortisone. It may take several weeks to get better. If nothing gives relief, an operation to remove the heel spur may help. Call or return if there is redness, increasing pain, swelling, fever, or any other new symptoms. Oral Narcotic Medication You have been given a prescription for pain control. This medication is a narcotic. It's best taken with food, as nausea can result if taken on an empty stomach. Don't operate machinery or drive within six hours of taking this medication. Do not combine this medicine with alcohol, or with any medication which can cause sedation (such as cold tablets or sleeping pills) unless you get permission from the physician. Narcotics tend to cause constipation. If possible, drink plenty of fluids and eat a diet high in fiber and fruits. Ibuprofen Ibuprofen is an excellent, safe drug for pain control. In addition, it has potent antiinflammatory effects which are beneficial, especially in the treatment of injuries, arthritis, or tendonitis. It's best to take ibuprofen with food. Persons with ulcer disease or allergy to aspirin should notify their physician of this before taking ibuprofen. Take the medication exactly as prescribed. Don't take additional doses unless instructed to do so by your doctor. If you develop wheezing, shortness of breath, hives, faintness, stomach pain, vomiting, or dark black stools, return for re-evaluation at once. FOLLOW-UP CARE: If you have been referred to a physician for follow-up care, call the physician s office for an appointment as you were instructed or within the next two days. If you experience worsening or a significant change in your symptoms, notify the physician immediately or return to the Emergency Department at any time for re-evaluation. Referrals: JENN OCONNELL DPM [ACTIVE STAFF] - Follow up as needed
--- NOTE | 2017-08-07 17:30 | RADIOLOGY REPORT (SQ) ---
EXAM DESCRIPTION: FOOT RIGHT COMPLETE COMPLETED DATE/TIME: 08/07/2017 5:13 pm REASON FOR STUDY: pain and burning in the bottom of the foot COMPARISON: None. NUMBER OF VIEWS: Three views. TECHNIQUE: AP, lateral and oblique radiographic images acquired of the right foot. LIMITATIONS: None. FINDINGS: MINERALIZATION: Normal. BONES: No acute fracture or dislocation. No worrisome bone lesions. JOINTS: No effusions. SOFT TISSUES: No soft tissue swelling. No foreign body. OTHER: No other significant finding. IMPRESSION: NEGATIVE STUDY OF THE RIGHT FOOT. NO RADIOGRAPHIC EVIDENCE OF ACUTE INJURY. TECHNICAL DOCUMENTATION: JOB ID: [id number] [employer]- All Rights Reserved
[2017-08-07 17:31] VITALS: BP 119/65
== END 2017-08-07 17:28 | disposition home or self-care (01) ==
LOC: ER 15:40
DX: M79.671 Pain in right foot (principal); F17.210 Nicotine dependence, cigarettes, uncomplicated
CPT/HCPCS: 99283

== ENCOUNTER 2017-11-21 09:51 | Emergency (ER) | payer MEDICAID ==
--- NOTE | 2017-11-21 10:30 | ER Document Report ---
HPI - HPI Pain Level: 4 Notes: Patient is a 27-year-old female who presents the ED complaining of nasal congestion/discharge, irritated throat, dry nonproductive cough, body ache, subjective fever 1 day. Patient is still eating and drinking without any difficulties. She is urinating normally and having normal bowel movements. Patient has not had any vomiting episodes and has not been nauseous which differs from written complaint. Patient did not get her flu vaccine this year. Patient states that she will need a work note as well. Denies any headache, neck pain, chest pain, palpitations, syncope, shortness of breath, wheeze, dyspnea, abdominal pain, nausea/vomiting/diarrhea, urinary retention, dysuria, hematuria, loss of control of bowel or bladder, numbness/tingling, or rash. Patient denies any other significant past medical history. Patient does admit to smoking but denies IV drug use. - ROS Notes: REVIEW OF SYSTEMS: CONSTITUTIONAL : see hpi EENT: see hpi CARDIOVASCULAR: Denies chest pain. Denies palpitations or racing or irregular heart beat. Denies ankle edema. RESPIRATORY: see hpi. Denies shortness of breath, difficulty breathing, or wheezing. GASTROINTESTINAL: Denies abdominal pain or distention. Denies nausea, vomiting , or diarrhea. Denies blood in vomitus, stools, or per rectum. Denies black, tarry stools. Denies constipation. GENITOURINARY: Denies difficulty urinating, painful urination, burning, frequency, blood in urine, or discharge. MUSCULOSKELETAL: Denies back or neck pain or stiffness. Denies joint pain or swelling. SKIN: Denies rash, lesions or sores. NEUROLOGICAL: Denies passing out or loss of consciousness. Denies dizziness or lightheadedness. Denies headache. Denies weakness or paralysis or loss of use of either side. Denies problems with gait or speech. Denies sensory loss, numbness, or tingling. Denies seizures. ALL OTHER SYSTEMS REVIEWED AND NEGATIVE. Dictation was performed using [employer] voice recognition software - REPRODUCTIVE Reproductive: DENIES: : Past Medical History - Social History Smoking Status: Current Every Day Smoker Family History: Malignancy, Thyroid Disfunction Pulmonary Medical History: Reports: Hx Pneumonia Neurological Medical History: Reports: Hx Migraine Renal/ Medical History: Reports: Hx Ovarian Cysts. Denies: Hx Peritoneal Dialysis Musculoskeltal Medical History: Reports Hx Musculoskeletal Trauma Psychiatric Medical History: Reports: Hx Attention Deficit Hyperactivity Disorder, Hx Bipolar Disorder, Hx Depression Traumatic Medical History: Reports: Hx Fractures - Left fifth finger and nose Past Surgical History: Reports: Hx Adenoidectomy - 2003, Hx Tonsillectomy - Immunizations Immunizations up to date: Yes Hx Diphtheria, Pertussis, Tetanus Vaccination: Yes Vertical Provider Document - CONSTITUTIONAL Agree With Documented VS: Yes Notes: PHYSICAL EXAMINATION: GENERAL: Well-appearing, well-nourished and in no acute distress. A&Ox4 HEAD: Atraumatic, normocephalic. EYES: Pupils equal round and reactive to light, extraocular movements intact, sclera anicteric, conjunctiva are normal. ENT: EAC clear b/l. TM's intact b/l without erythema, fluid, or perforation. Nares patent and with clear discharge. oropharynx clear without exudates. Tonsils absent. Moist mucous membranes. No sinus tenderness. Uvula midline. No palatine shift. No tongue protrusion or airway compromise. NECK: Normal range of motion, supple without lymphadenopathy. No rigidity/ meningismus. LUNGS: Breath sounds clear to auscultation bilaterally and equal. No wheezes rales or rhonchi. HEART: Regular rate and rhythm without murmurs, rubs, gallops. ABDOMEN: Soft, nontender, nondistended abdomen. No guarding, no rebound. No masses appreciated. Normal bowel sounds present. No CVA tenderness bilaterally. Musculoskeletal: FROM to passive/active. Strength 5+/5. Extremities: No cyanosis, clubbing, or edema b/l. Peripheral pulses 2+. Capillary refill less than 3 seconds. NEUROLOGICAL: Cranial nerves grossly intact. Normal speech, normal gait. Normal sensory, motor exams PSYCH: Normal mood, normal affect. SKIN: Warm, Dry, normal turgor, no rashes or lesions noted. - INFECTION CONTROL TRAVEL OUTSIDE OF THE [place] IN LAST 30 DAYS: No - RESPIRATORY O2 Sat by Pulse Oximetry: 98 Course - Re-evaluation Re-evalutation: 11/21/17 11:04 Patient is an afebrile, well-hydrated, 27-year-old female who presents to the ED with Influenza A. Vitals are stable. PE is otherwise unremarkable. Rapid influenza was positive. No other imaging or lab tests warranted at this time based on H&P. A work note will be provided. Low suspicion for any ACS, PE, pneumothorax, pericarditis, dissection, respiratory compromise, severe dehydration, sepsis, meningitis, or other systemic emergent condition at this time. Patient is aware that her condition can change from initial presentation and she needs to monitor symptoms closely and seek medical attention for any acute changes. Recommend conservative measures for symptoms. Recheck with your PCM in 3-5 days. Return to the ED with any worsening/concerning symptoms otherwise as reviewed in discharge. Patient is in agreement. - Vital Signs Vital signs: Temp Pulse Resp BP Pulse Ox 99.2 F 115 H 18 133/84 H 98 11/21/17 09:55 11/21/17 09:55 11/21/17 09:55 11/21/17 09:55 11/21/17 09:55 Discharge - Discharge Clinical Impression: Influenza A Condition: Stable Disposition: HOME, SELF-CARE Instructions: Upper Respiratory Illness ([facility]), Influenza ([facility]) Additional Instructions: Maintain adequate fluid intake Take meds as directed tylenol/ibuprofen as needed over the counter cold medication as needed for symptoms Humidified air may help F/u: with your PCM in 3-5 days for a recheck Return to the ED with any fever, worsening pain, chest pain, palpitations, syncope, worsening [place], neck pain/stiffness, shortness of breath, wheezing, drooling, trouble swallowing/breathing, abdominal pain, n/v/d, rash, or worsening/concerning symptoms otherwise. Forms: Elevated Blood Pressure, Smoking Cessation Education, Return to Work Referrals: [facility] [Provider Group] - Follow up as needed [facility] [Provider Group] - Follow up as needed
[2017-11-21 11:03] LABS: A TYPE INFLUENZA AG POSITIVE (NEGATIVE); B INFLUENZA AG NEGATIVE (NEGATIVE)
[2017-11-21] MEDS ORDERED: ACETAMINOPHEN 325 MG TABLET ONE (11:18)
[2017-11-21] MEDS ORDERED: ACETAMINOPHEN 325 MG TABLET PO ONE (11:19)
[2017-11-21 11:24] VITALS: BP 133/88
== END 2017-11-21 11:24 | disposition home or self-care (01) ==
LOC: ER 09:51
DX: J11.1 Influenza due to unidentified influenza virus with other respiratory manifestations (principal); R05 Cough; R09.89 Other specified symptoms and signs involving the circulatory and respiratory systems; F17.200 Nicotine dependence, unspecified, uncomplicated; Z87.01 Personal history of pneumonia (recurrent)
CPT/HCPCS: 99283; 87804; J3490

== ENCOUNTER → 2018-02-13 | Outpatient (CLI) | payer MEDICAID ==
[2018-02-13 14:58] LABS: BACTERIA (WET MOUNT) 4+ BACTERIA SEEN; EPITHELIALS (WET MOUNT) 3+ EPITHELIALS SEEN; RBCS (WET MOUNT) NO RBCS SEEN; T.VAGINALIS (WET MOUNT) NO TRICHOMONAS SEEN; WBCS (WET MOUNT) 1+ WBCS SEEN; YEAST (WET MOUNT) YEAST SEEN
== END ==
LOC: LAB 14:54
PROVIDERS: ATTEND Nurse Practitioner Acute Care
DX: N89.8 Other specified noninflammatory disorders of vagina (principal); R30.0 Dysuria
CPT/HCPCS: 87086; 87210

== ENCOUNTER 2018-07-31 22:56 | Emergency (ER) | payer MEDICAID ==
--- NOTE | 2018-08-01 00:53 | ER Document Report ---
ED GI/ - General Chief Complaint: Vaginal Bleeding Stated Complaint: VAGINAL SPOTTING,CRAMPING Time Seen by Provider: 08/01/18 00:31 TRAVEL OUTSIDE OF THE [place] IN LAST 30 DAYS: No - HPI Patient complains to provider of: Other - 28-year-old female who had her last menses approximately 6 weeks prior the presents for evaluation of foul- smelling vaginal discharge in the setting of a recent change in sexual partners and a positive test at home. She notes some cramping pelvic pain associated with this. Denies any fevers or chills, nausea, emesis, chest pain shortness of breath diarrhea dizziness diaphoresis rashes or other symptoms. She has had similar episodes in the past which have been diagnosed as bacterial vaginosis. Nothing is seem to make it any better, nothing seems to make any worse. She has not taken anything try and help with this thus far. She has not talked to an farm mortgage agent since she has had her positive test. - Related Data Allergies/Adverse Reactions: tramadol Allergy (Verified 07/31/18 22:57) Past Medical History - General Information source: Patient - Social History Smoking Status: Current Every Day Smoker Chew tobacco use (# tins/day): No Frequency of alcohol use: Social Drug Abuse: None Family History: Malignancy, Thyroid Disfunction Patient has suicidal ideation: No Patient has homicidal ideation: No Pulmonary Medical History: Reports: Hx Pneumonia Neurological Medical History: Reports: Hx Migraine Renal/ Medical History: Reports: Hx Ovarian Cysts. Denies: Hx Peritoneal Dialysis Musculoskeletal Medical History: Reports Hx Musculoskeletal Trauma Psychiatric Medical History: Reports: Hx Attention Deficit Hyperactivity Disorder, Hx Bipolar Disorder, Hx Depression Traumatic Medical History: Reports: Hx Fractures - Left fifth finger and nose Past Surgical History: Reports: Hx Adenoidectomy - 2002, Hx Tonsillectomy - Immunizations Immunizations up to date: Yes Hx Diphtheria, Pertussis, Tetanus Vaccination: Yes Review of Systems - Review of Systems -: Yes All other systems reviewed and negative Physical Exam - Vital signs Vitals: Temp Pulse Resp BP Pulse Ox 97.5 F 103 H 16 104/83 100 07/31/18 22:59 07/31/18 22:59 07/31/18 22:59 07/31/18 22:59 07/31/18 22:59 - General General appearance: Appears well In distress: None - HEENT Head: Normocephalic Eyes: Normal Conjunctiva: Normal Cornea: Normal Extraocular movements intact: Yes Eyelashes: Normal Pupils: PERRL - Respiratory Respiratory status: No respiratory distress Chest status: Nontender Breath sounds: Normal Chest palpation: Normal - Cardiovascular Rhythm: Regular Heart sounds: Normal auscultation Murmur: No - Abdominal Inspection: Normal Distension: No distension Tenderness: Nontender Organomegaly: No organomegaly - Back Back: Normal - Extremities General upper extremity: Normal inspection, Nontender General lower extremity: Normal inspection, Nontender - Neurological Neuro grossly intact: Yes Cognition: Normal Orientation: AAOx4 Agustin Coma Scale Eye Opening: Spontaneous [place] Coma Scale Verbal: Oriented [place] Coma Scale Motor: Obeys Commands Agustin Coma Scale Total: 15 Speech: Normal Cranial nerves: Normal Cerebellar coordination: Normal Motor strength normal: LUE, RUE, LLE, RLE - Psychological Associated symptoms: Normal affect Course - Re-evaluation Re-evalutation: 08/01/18 02:53 Young female presents for evaluation of the setting of a positive tests as well as some pelvic discharge with some foul odor. Has had previous episodes of bacterial vaginosis in the past. We will obtain urinalysis, rogam screening, and pelvic swabs. Patient's pelvic swabs do demonstrate 3+ bacteria, consistent with possible bacterial vaginosis. Patient's urinalysis does not demonstrate obvious urinary tract infection. We will await results for GC and chlamydia results prior to treatment. Patient will be called back. Bedside ultrasound demonstrates a pole with a length of 0.72 cm consistent with a gestational age of approximately 6 weeks and 4 days. Updated the patient at the bedside related to her treatment course, will plan for treatment with topical metronidazole for presumptive bacterial vaginosis. Patient is able tolerate p.o. with benign abdominal examination at the time of discharge and encouraged follow-up with her farm mortgage agent. - Vital Signs Vital signs: Temp Pulse Resp BP Pulse Ox 97.5 F 103 H 16 104/83 100 07/31/18 22:59 07/31/18 22:59 07/31/18 22:59 07/31/18 22:59 07/31/18 22:59 - Laboratory Laboratory results interpreted by me: 08/01/18 00:59 Urine Urobilinogen 2.0 H Ur Leukocyte Esterase MODERATE H Urine HCG, Qual POSITIVE H Discharge - Discharge Clinical Impression: Bacterial vaginosis Qualifiers: Weeks of gestation: less than 8 weeks Qualified Code(s): Z3A.01 - Less than 8 weeks gestation of Condition: Good Disposition: HOME, SELF-CARE Instructions: Vaginosis, Bacterial ([facility]), ([facility]) Additional Instructions: you were seen today in the emergency department for your and bacterial vaginosis. You had a physical examination as well as an ultrasound at the bedside which demonstrates what looks to be a normally developing intrauterine . Based on the size it is approximately 6-1/2 weeks. Schedule appointment with your OB doctor this week. Use the topical metronidazole as directed. Return for worsening fevers or chills inability to eat or drink or other worsening symptoms. Prescriptions: Metronidazole [Metrogel 0.75% Vaginal Gel] 5 applic VG DAILY #1 tube Referrals: RAZIA RG, MEDICAL LABORATORY TECHNICIAN [NURSE PRACTITIONER] - Follow up as needed
[2018-08-01 01:10] LABS: APPEARANCE,URINE SLIGHTLY-CLOUDY; BILIRUBIN,URINE NEGATIVE (NEGATIVE); COLOR,URINE YELLOW; GLUCOSE, URINE NEGATIVE (NEGATIVE); KETONES,URINE NEGATIVE (NEGATIVE); LEUKOCYTE ESTERASE,URINE MODERATE (NEGATIVE); NITRITE,URINE NEGATIVE (NEGATIVE); PROTEIN,URINE NEGATIVE (NEGATIVE)
[2018-08-01 01:20] LABS: BACTERIA (WET MOUNT) 4+ BACTERIA SEEN; RBCS (WET MOUNT) NO RBCS SEEN; T.VAGINALIS (WET MOUNT) NO TRICHOMONAS SEEN; WBCS (WET MOUNT) 1+ WBCS SEEN; YEAST (WET MOUNT) NO YEAST SEEN
[2018-08-01 02:23] VITALS: BP 110/76
[2018-08-01 02:49] LABS: CHLAM PCR NOT DETECTED (NOT DETECT); GON PCR DETECTED (NOT DETECT)
== END 2018-08-01 02:19 | disposition home or self-care (01) ==
LOC: ER 22:56
DX: O23.591 Infection of other part of genital tract in pregnancy, first trimester (principal); B96.89 Other specified bacterial agents as the cause of diseases classified elsewhere; O26.891 Other specified pregnancy related conditions, first trimester; R10.2 Pelvic and perineal pain; O99.331 Smoking (tobacco) complicating pregnancy, first trimester; Z3A.01 Less than 8 weeks gestation of pregnancy; Z88.5 Allergy status to narcotic agent
CPT/HCPCS: 36415; 81001; 81025; 86900; 86901; 87210; 87491; 87591; 99283

== ENCOUNTER 2019-02-15 12:36 | Emergency (ER) | payer SELFPAY ==
[2019-02-15] MEDS ORDERED: ONDANSETRON 4 MG TAB.RAPDIS PO ONE (13:30)
--- NOTE | 2019-02-15 13:34 | ER Document Report ---
ED General - General Chief Complaint: Vaginal Discharge Stated Complaint: VOMITING,DIARRHEA Time Seen by Provider: 02/15/19 13:07 Mode of Arrival: Ambulatory Information source: Patient Notes: 28-year-old female at approximately 5 weeks and 3 days per last menstrual period which she reports to be January 08, 2019 presents with complaint of 1 week of diarrhea, vaginal discharge, foul vaginal odor, abdominal pain and intermittent nausea and vomiting. Patient does report a history of chlamydia 1 year ago. She was treated at that time but states that her boyfriend was not treated appropriately and is concerned that she may have chlamydia again. Patient denies vaginal bleeding, fever, chills. TRAVEL OUTSIDE OF THE [place] IN LAST 30 DAYS: No - HPI Onset: Last week Onset/Duration: Persistent Quality of pain: Cramping Severity: Mild Associated symptoms: Diarrhea, Nausea, Vomiting, Other - Abdominal cramping Exacerbated by: Denies Relieved by: Denies Similar symptoms previously: Yes Recently seen / treated by doctor: No - Related Data Allergies/Adverse Reactions: tramadol Allergy (Verified 02/15/19 12:40) Past Medical History - General Information source: Patient, [facility] Records - Social History Smoking Status: Never Smoker Frequency of alcohol use: None Drug Abuse: None Lives with: Family Family History: Malignancy, Thyroid Disfunction Pulmonary Medical History: Reports: Hx Pneumonia Neurological Medical History: Reports: Hx Migraine Renal/ Medical History: Reports: Hx Ovarian Cysts. Denies: Hx Peritoneal Dialysis Musculoskeletal Medical History: Reports Hx Musculoskeletal Trauma Psychiatric Medical History: Reports: Hx Attention Deficit Hyperactivity Disorder, Hx Bipolar Disorder, Hx Depression Traumatic Medical History: Reports: Hx Fractures - Left fifth finger and nose Past Surgical History: Reports: Hx Adenoidectomy - 2002, Hx Tonsillectomy - Immunizations Immunizations up to date: Yes Hx Diphtheria, Pertussis, Tetanus Vaccination: Yes Review of Systems - Review of Systems Constitutional: denies: Fever, Recent illness EENT: denies: Blurred vision, Difficulty swallowing Cardiovascular: denies: Chest pain, Palpitations Respiratory: denies: Cough, Short of breath Gastrointestinal: Abdominal pain, Diarrhea, Nausea, Vomiting Genitourinary: denies: Dysuria Female Genitourinary: Vaginal discharge, Vaginal odor. denies: Vaginal bleeding Musculoskeletal: denies: Back pain Skin: denies: Rash Hematologic/Lymphatic: No symptoms reported Neurological/Psychological: denies: Headaches -: Yes All other systems reviewed and negative Physical Exam - Vital signs Vitals: Temp Pulse Resp BP Pulse Ox 98.1 F 95 14 130/66 H 99 02/15/19 12:43 02/15/19 12:43 02/15/19 12:43 02/15/19 12:43 02/15/19 12:43 - Notes Notes: PHYSICAL EXAMINATION: GENERAL: Well-appearing, well-nourished and in no acute distress. HEAD: Atraumatic, normocephalic. EYES: Pupils equal round and reactive to light, extraocular movements intact, conjunctiva are normal. ENT: Nares patent, oropharynx clear without exudates. Moist mucous membranes. NECK: Normal range of motion, supple without lymphadenopathy LUNGS: Breath sounds clear to auscultation bilaterally and equal. No wheezes rales or rhonchi. HEART: Regular rate and rhythm without murmurs ABDOMEN: Soft, nontender, nondistended abdomen. No guarding, no rebound. No masses appreciated. Female : Pelvic exam; External genitalia unremarkable. Speculum exam with thin white discharge. Vaginal wall unremarkable. Os closed. No vaginal bleeding no cervical motion tenderness. No adnexal tenderness or masses appreciated. Swabs obtained for gonorrhea, chlamydia and wet prep. Musculoskeletal: Normal range of motion, no pitting or edema. No cyanosis. NEUROLOGICAL: Cranial nerves grossly intact. Normal speech, normal gait. Normal sensory, motor exams PSYCH: Normal mood, normal affect. SKIN: Warm, Dry, normal turgor, no rashes or lesions noted. Course - Re-evaluation Re-evalutation: 02/15/19 18:13 Laboratory 02/15/19 02/15/19 02/15/19 14:23 14:23 14:23 Beta HCG, Quant Total Beta HCG Urine Color STRAW Urine Appearance SLIGHTLY-CLOUDY Urine pH 9.0 Ur Specific [place] 1.005 Urine Protein NEGATIVE Urine Glucose (UA) NEGATIVE Urine Ketones NEGATIVE Urine Blood NEGATIVE Urine Nitrite NEGATIVE Urine Bilirubin NEGATIVE Urine Urobilinogen NEGATIVE Ur Leukocyte Esterase NEGATIVE Urine WBC (Auto) 1 Urine RBC (Auto) 1 Urine Bacteria (Auto) TRACE Squamous Epi Cells Auto 4 Urine Ascorbic Acid NEGATIVE Urine HCG, Qual POSITIVE H Epi Cells (Wet Prep) 3+ EPITHELIALS SEEN Bacteria (Wet Prep) 3+ BACTERIA SEEN Trichomonas (Wet Prep) NO TRICHOMONAS SEEN Vaginal WBC 1+ WBCS SEEN Vaginal Yeast NO YEAST SEEN Chlamydia DNA (PCR) NOT DETECTED N.gonorrhoeae DNA (PCR) NOT DETECTED 02/15/19 15:15 Beta HCG, Quant 5392.00 H Total Beta HCG POSITIVE Urine Color Urine Appearance Urine pH Ur Specific [place] Urine Protein Urine Glucose (UA) Urine Ketones Urine Blood Urine Nitrite Urine Bilirubin Urine Urobilinogen Ur Leukocyte Esterase Urine WBC (Auto) Urine RBC (Auto) Urine Bacteria (Auto) Squamous Epi Cells Auto Urine Ascorbic Acid Urine HCG, Qual Epi Cells (Wet Prep) Bacteria (Wet Prep) Trichomonas (Wet Prep) Vaginal WBC Vaginal Yeast Chlamydia DNA (PCR) N.gonorrhoeae DNA (PCR) Obstetrics Ultrasound 02/15/19 13:30 IMPRESSION: A GESTATIONAL SAC IS IN PLACE BUT NO POLE. ASSOCIATED SUB CHRONIC HEMATOMA. ECTOPIC CANNOT BE EXCLUDED. FOLLOW-UP ULTRASOUND AND SERIAL BHCG LEVELS STRONGLY RECOMMENDED TO ACCURATELY ASSESS STATUS. Temp Pulse Resp BP Pulse Ox 98.3 F 87 16 106/60 100 02/15/19 15:37 02/15/19 15:37 02/15/19 15:37 02/15/19 15:37 02/15/19 15:37 02/15/19 18:14 28-year-old female at approximately 5 weeks and 3 days per last menstrual period which she reports to be January 08, 2019 presents with complaint of 1 week of diarrhea, vaginal discharge, foul vaginal odor, abdominal pain and intermittent nausea and vomiting. Patient does report a history of chlamydia 1 year ago. She was treated at that time but states that her boyfriend was not treated appropriately and is concerned that she may have chlamydia again. Patient denies vaginal bleeding, fever, chills. Vital signs reviewed and within normal limits. Pelvic exam performed and showed no vaginal bleeding, office was closed and there was thin white discharge. Wet mount positive for bacterial vaginosis. Gonorrhea and chlamydia negative. Transvaginal ultrasound did show a gestational sac without a pole but this could be associated with early . Patient was given a prescription for repeat hCG in 48 hours. She was told to return if she experience worsening abdominal pain, vaginal bleeding. Patient was evaluated and treated as appropriate for the patient's presenting symptoms and complaint, with consideration of any critical or life threatening conditions that may be associated with their obtained history and exam as noted above. All results were discussed with patient. Patient provided the opportunity to ask questions, and express concerns. Patient was educated on treatments based on their presumed diagnosis as noted above. At this time we will discharge the patient with return precautions and follow-up recommendations. Verbal discharge instructions given a the bedside. Medication warnings reviewed. Patient is in agreement with this plan and has verbalized understanding of return precautions. After careful consideration I feel that that patient can be safely discharged from the emergency department, they were advised to followup with a primary care physician in 2-3 days. Dictation on this chart was performed using voice recognition software and may result in unintended grammatical, spelling, syntax or errors. - Vital Signs Vital signs: Temp Pulse Resp BP Pulse Ox 98.3 F 87 16 106/60 100 02/15/19 15:37 02/15/19 15:37 02/15/19 15:37 02/15/19 15:37 02/15/19 15:37 - Laboratory Laboratory results interpreted by me: 02/15/19 02/15/19 14:23 15:15 Beta HCG, Quant 5392.00 H Urine HCG, Qual POSITIVE H - Diagnostic Test Radiology reviewed: Image reviewed, Reports reviewed Discharge - Discharge Clinical Impression: Abdominal pain during in first trimester, Bacterial vaginosis, Elevated blood pressure reading Condition: Good Disposition: HOME, SELF-CARE Instructions: Abdominal Pain ([facility]), ([facility]), Threatened Miscarriage ([facility]), Vaginosis, Bacterial ([facility]) Additional Instructions: You are being treated for bacterial vaginosis, an overgrowth of normal bacteria in the vagina. You are being sent home on an antibiotic called metronidazole. Take exactly as directed. Never drink alcohol while taking this antibiotic. Please return if you develop abdominal pain, fever greater than 101F, some vomiting, or any other symptoms that are concerning to you. Your ultrasound today showed a gestational sac but no pole or heartbeat. This could be because you are very early on in your . He need to return to the emergency department in 48 hours for repeat lab testing. Please make an appointment with your DRIVABILITY TECHNICIAN for repeat ultrasound. Please return to the emergency department with worsening abdominal pain or vaginal bleeding. Prescriptions: Metronidazole [Metrogel 0.75% Vaginal Gel] 5 applic VG QHS #1 tube Forms: Follow-Up Laboratory Testing, Return to Work
--- NOTE | 2019-02-15 14:35 | RADIOLOGY REPORT (SQ) ---
EXAM DESCRIPTION: U/S OB TRANSVAGINAL W/O DOP COMPLETED DATE/TIME: 02/15/2019 2:21 pm REASON FOR STUDY: pain with COMPARISON: None. TECHNIQUE: Transvaginal static and realtime grayscale images acquired of the pelvis. Additional rudolph cted spectral and color Doppler images recorded. All images stored on PACs. CLINICAL AGE: 5 week 3 day BHCG: Not available LIMITATIONS: None. FINDINGS: UTERUS: Gestational sac measuring 1.1 cm corresponding to a 5 week 6 day gestation. There is an adjacent subchorionic hematoma measuring 1.9 cm. No pole identified. RIGHT ADNEXA: Ovary not identified due to poor acoustical window. No adnexal free fluid. No adnexal masses. LEFT ADNEXA: Ovary not identified due to poor acoustical window. No adnexal free fluid. No adnexal masses. FREE FLUID: None. OTHER: CERVIX 4.1 CM, CLOSED. IMPRESSION: A GESTATIONAL SAC IS IN PLACE BUT NO POLE. ASSOCIATED SUB CHRONIC HEMATOMA. ECTOPIC CANNOT BE EXCLUDED. FOLLOW-UP ULTRASOUND AND SERIAL BHCG LEVELS STRONGLY RECOMMENDED TO ACCURATELY ASSESS STATU S. TECHNICAL DOCUMENTATION: JOB ID: [id number] [employer]- All Rights Reserved Reading location - IP/workstation name: [email or web address]
[2019-02-15 14:47] LABS: APPEARANCE,URINE SLIGHTLY-CLOUDY; BILIRUBIN,URINE NEGATIVE (NEGATIVE); COLOR,URINE STRAW; GLUCOSE, URINE NEGATIVE (NEGATIVE); KETONES,URINE NEGATIVE (NEGATIVE); LEUKOCYTE ESTERASE,URINE NEGATIVE (NEGATIVE); NITRITE,URINE NEGATIVE (NEGATIVE); PROTEIN,URINE NEGATIVE (NEGATIVE); URINE SPECIFIC GRAVITY 1.005; UROBILINOGEN,URINE NEGATIVE mg/dL (<2.0)
[2019-02-15 14:49] LABS: BACTERIA (WET MOUNT) 3+ BACTERIA SEEN; EPITHELIALS (WET MOUNT) 3+ EPITHELIALS SEEN; T.VAGINALIS (WET MOUNT) NO TRICHOMONAS SEEN; WBCS (WET MOUNT) 1+ WBCS SEEN; YEAST (WET MOUNT) NO YEAST SEEN
[2019-02-15 15:40] VITALS: BP 106/60
[2019-02-15 16:09] LABS: CHLAM PCR NOT DETECTED (NOT DETECT); GON PCR NOT DETECTED (NOT DETECT)
== END 2019-02-15 15:39 | disposition home or self-care (01) ==
LOC: ER 12:36
DX: O26.91 Pregnancy related conditions, unspecified, first trimester (principal); R10.9 Unspecified abdominal pain; O23.591 Infection of other part of genital tract in pregnancy, first trimester; B96.89 Other specified bacterial agents as the cause of diseases classified elsewhere; R19.7 Diarrhea, unspecified; R03.0 Elevated blood-pressure reading, without diagnosis of hypertension; Z3A.01 Less than 8 weeks gestation of pregnancy; Z88.6 Allergy status to analgesic agent
CPT/HCPCS: 99284; 36415; 87210; 84702; 81025; 81001; 87491; 87591; 76817; S0119

== ENCOUNTER 2019-03-19 12:30 | Emergency (ER) | payer SELFPAY ==
--- NOTE | 2019-03-19 13:09 | ER Document Report ---
ED Medical Screen (RME) - General Chief Complaint: Vag Bleeding, +preg <12wks Stated Complaint: VAGINAL BLEEDING Time Seen by Provider: 03/19/19 13:00 Mode of Arrival: Ambulatory Information source: Patient TRAVEL OUTSIDE OF THE [place] IN LAST 30 DAYS: No - HPI Patient complains to provider of: PREG, VAGINAL BLEEDING Notes: 03/19/19 13:06 Patient here with complaints of vaginal bleeding. The patient is approximately 10 weeks . She is a G6, P4, 1 prior . The patient was seen here a month ago had a quantitative hCG of over 5000, had an ultrasound showing a sac, no pole, subchorionic hemorrhage. She has not had any follow-up since that last visit. She developed some lower abdominal cramping and vaginal bleeding this morning. She has had some nausea, vomiting which she has had throughout the . No fever. Patient with O+ blood type Exam Nontoxic, no distress. Lungs clear and equal throughout. Heart sounds normal. No focal abdominal tenderness on limited abdominal triage exam. Plan CBC, CMP, quantitative hCG, urinalysis, ultrasound. An initial examination was made on the patient as part of the triage process, and it was determined a more comprehensive evaluation was necessary. Initial labs were ordered and patient was transferred to another provider in the ED who assumed care and finished evaluation and plan. - Related Data Allergies/Adverse Reactions: tramadol Allergy (Verified 03/19/19 12:30) Past Medical History - Social History Frequency of alcohol use: None Drug Abuse: None Family history: Reviewed & Not Pertinent Pulmonary Medical History: Reports: Hx Pneumonia Neurological Medical History: Reports: Hx Migraine Renal/ Medical History: Reports: Hx Ovarian Cysts. Denies: Hx Peritoneal Dialysis Musculoskeltal Medical History: Reports Hx Musculoskeletal Trauma Psychiatric Medical History: Reports: Hx Attention Deficit Hyperactivity Disorder, Hx Bipolar Disorder, Hx Depression Traumatic Medical History: Reports: Hx Fractures - Left fifth finger and nose Past Surgical History: Reports: Hx Adenoidectomy - 2002, Hx Tonsillectomy - Immunizations Immunizations up to date: Yes Hx Diphtheria, Pertussis, Tetanus Vaccination: Yes Physical Exam - Vital signs Vitals: Temp Pulse Resp BP Pulse Ox 98.6 F 106 H 18 120/70 98 03/19/19 12:34 03/19/19 12:34 03/19/19 12:34 03/19/19 12:34 03/19/19 12:34 Course - Vital Signs Vital signs: Temp Pulse Resp BP Pulse Ox 98.6 F 106 H 18 120/70 98 03/19/19 12:34 03/19/19 12:34 03/19/19 12:34 03/19/19 12:34 03/19/19 12:34
[2019-03-19 13:32] LABS: ABSOLUTE BASOPHILS # (AUTO) 0.1 10^3/uL (0.0-0.2); ABSOLUTE EOSINOPHILS # (AUTO) 0.7 10^3/uL (0.0-0.6); ABSOLUTE MONOCYTES (AUTO) 0.8 10^3/uL (0.1-1.4); ABSOLUTE NEUT (AUTO) 9.7 10^3/uL (1.7-8.2); BASOPHILS % (AUTO) 0.4 % (0-2); EOSINOPHILS % (AUTO) 5.1 % (0-6); HEMATOCRIT 36.3 % (36.0-47.0); HEMOGLOBIN 11.4 g/dL (12.0-15.5); LYMPHOCYTES % (AUTO) 15.1 % (13-45); MEAN CORPUSCULAR HEMOGLOBIN 23.1 pg (27.0-33.4); MEAN CORPUSCULAR HGB CONC 31.4 g/dL (32.0-36.0); MEAN CORPUSCULAR VOLUME 74 fl (80-97); MONOCYTES % (AUTO) 5.9 % (3-13); PLATELET COUNT 316 10^3/uL (150-450); RED BLOOD COUNT 4.94 10^6/uL (3.72-5.28); RED CELL DISTRIBUTION WIDTH 17.8 % (11.5-14.0); SEGMENTED NEUTROPHILS % (AUTO) 73.5 % (42-78); TOTAL CELLS COUNTED % (AUTO) 100 %; WHITE BLOOD COUNT 13.3 10^3/uL (4.0-10.5)
[2019-03-19 13:58] LABS: ALANINE AMINOTRANSFERASE 39 U/L (9-52); ALBUMIN 3.8 g/dL (3.5-5.0); ALKALINE PHOSPHATASE 61 U/L (38-126); ANION GAP 8 (5-19); ASPARTATE AMINO TRANSFERASE 51 U/L (14-36); BILIRUBIN,DIRECT 0.2 mg/dL (0.0-0.4); BILIRUBIN,TOTAL 0.4 mg/dL (0.2-1.3); BLOOD UREA NITROGEN 7 mg/dL (7-20); CALCIUM 9.4 mg/dL (8.4-10.2); CARBON DIOXIDE 23 mmol/L (22-30); CHLORIDE 106 mmol/L (98-107); GLUCOSE 107 mg/dL (75-110); POTASSIUM 4.2 mmol/L (3.6-5.0); SODIUM 136.7 mmol/L (137-145); TOTAL PROTEIN 6.6 g/dL (6.3-8.2)
[2019-03-19] MEDS ORDERED: METOCLOPRAMIDE HCL INJ/PF 10 MG/2 ML SDV IV ONE (14:40)
[2019-03-19] MEDS ORDERED: NORMAL SALINE 1000 ML 1,000 ML IV ONE (14:40)
--- NOTE | 2019-03-19 14:45 | ER Document Report ---
ED General - General Chief Complaint: Vag Bleeding, +preg <12wks Stated Complaint: VAGINAL BLEEDING Time Seen by Provider: 03/19/19 13:00 Mode of Arrival: Ambulatory Information source: Patient TRAVEL OUTSIDE OF THE [place] IN LAST 30 DAYS: No - HPI Patient complains to provider of: Vaginal bleeding in early Onset: Other - Symptoms started around 0200 today. Onset/Duration: Sudden Quality of pain: No pain Severity: None Associated symptoms: None Exacerbated by: Denies Similar symptoms previously: No Recently seen / treated by doctor: No Notes: 28-year-old -Faro[place] female coming in today with vaginal bleeding and +10 weeks gestation. Around 2:00 this morning patient had some spotting. By the time she got up later to go to urinate she noticed that there was a large amount of red blood in the toilet. No clots or tissues. At no time has she had any pelvic cramping or contractions. No fevers or shaking chills. No urinary symptoms. No vaginal discharge. - Related Data Allergies/Adverse Reactions: tramadol Allergy (Verified 03/19/19 12:30) Past Medical History - General Information source: Patient - Social History Smoking Status: Never Smoker Frequency of alcohol use: None Drug Abuse: None Family History: Reviewed & Not Pertinent, Malignancy, Thyroid Disfunction Patient has suicidal ideation: No Patient has homicidal ideation: No Pulmonary Medical History: Reports: Hx Pneumonia Neurological Medical History: Reports: Hx Migraine Renal/ Medical History: Reports: Hx Ovarian Cysts. Denies: Hx Peritoneal Dialysis Musculoskeletal Medical History: Reports Hx Musculoskeletal Trauma Psychiatric Medical History: Reports: Hx Attention Deficit Hyperactivity Disorder, Hx Bipolar Disorder, Hx Depression Traumatic Medical History: Reports: Hx Fractures - Left fifth finger and nose Past Surgical History: Reports: Hx Adenoidectomy - 2002, Hx Tonsillectomy - Immunizations Immunizations up to date: Yes Hx Diphtheria, Pertussis, Tetanus Vaccination: Yes Review of Systems - Review of Systems Notes: Constitutional: No fevers. No chills. EENT: No eye redness. No eye pain. No ear pain. No sore throat. Cardiovascular: No chest pain. No palpitations. Respiratory: No cough. No shortness of breath. No respiratory distress. Gastrointestinal: No abdominal pain. No nausea, vomiting, or diarrhea. Genitourinary: Atraumatic. No lesions. No pain. No discharge. Positive for vaginal bleeding. Negative for pelvic cramping Musculoskeletal: Atraumatic. No swelling. No deformities. Skin: No rash or lesions. Lymphatic: No swollen lymph nodes. Neurologic: No headache. No syncope. Psychiatric: No suicidal or homicidal ideation. Physical Exam - Vital signs Vitals: Temp Pulse Resp BP Pulse Ox 98.6 F 106 H 18 120/70 98 03/19/19 12:34 03/19/19 12:34 03/19/19 12:34 03/19/19 12:34 03/19/19 12:34 - Notes Notes: General: Well-developed, well-nourished. In no acute distress. Non-toxic appearing. Cardiac: Well-perfused. Regular rate and rhythm. No murmurs, rubs, or gallops. Pulmonary: No respiratory distress. No cyanosis. Bilateral lung wei are clear to auscultation. Abdominal: Non-distended. Non-rigid. Bowels sounds are present in all four quadrants. No guarding or rebound. HEENT: Head is atraumatic. Conjunctivae not reddened. No tearing. PERRL. EOMI. Orbits atraumatic. No periorbital swelling or erythema. Oropharynx is without erythema, swelling, or exudates. Neck: Supple. No adenopathy. No meningismus. Dermatologic: Warm with good turgor. No rash. Atraumatic. Chest: Atraumatic. No chest wall tenderness to palpation. Musculoskeletal: Moves all extremities well. No range of motion deficits. no muscular or joint tenderness. No paraspinal muscle tenderness. no midline spinal tenderness or step-off. Genitourinary: Examination deferred per pt request. Neurologic: No gross neurologic deficits. Psychiatric: Normal mood. Course - Re-evaluation Re-evalutation: 03/19/19 15:53 Ultrasound reveals a subchorionic hemorrhage. Otherwise a living IUP with no other concerns. See full report for details. Will discharge patient home with diagnosis subchorionic hemorrhage. She is also got some some bacteria and some blood in the urine she has a history of bacterial vaginosis which was previously untreated. We will give her Flagyl 500 3 times daily for this for a week and have her follow-up with her core analysis operator for further care. - Vital Signs Vital signs: Temp Pulse Resp BP Pulse Ox 98.6 F 106 H 18 120/70 98 03/19/19 12:34 03/19/19 12:34 03/19/19 12:34 03/19/19 12:34 03/19/19 12:34 - Laboratory Result Diagrams: 03/19/19 13:18 03/19/19 13:18 Laboratory results interpreted by me: 03/19/19 03/19/19 03/19/19 13:18 13:18 13:40 WBC 13.3 H Hgb 11.4 L MCV 74 L MCH 23.1 L MCHC 31.4 L RDW 17.8 H Absolute Neutrophils 9.7 H Absolute Eosinophils 0.7 H Sodium 136.7 L AST 51 H Beta HCG, Quant 936307.00 H Urine Blood SMALL H Urine Urobilinogen 4.0 H Ur Leukocyte Esterase SMALL H Urine Ascorbic Acid 40 H Discharge - Discharge Clinical Impression: Bacterial vaginosis Subchorionic hemorrhage Qualifiers: Fetus number: single or unspecified fetus Trimester: first trimester Qualified Code(s): O41.8X10 - Other specified disorders of amniotic fluid and membranes, first trimester, not applicable or unspecified; O46.8X1 - Other antepartum hemorrhage, first trimester Condition: Good Disposition: HOME, SELF-CARE Additional Instructions: You are 10 weeks and 0 days gestation based on ultrasound today. Her baby is al ciara and well. There is a small collection of blood in the uterine wall that is most likely the source of your bleeding today. Please get this followed up by your core analysis operator in the next week or so. Recommend pelvic rest in the meantime. Be sure to drink plenty of fluids. He will be provided with a prescription for Reglan which will help with your nausea. Prescriptions: Metoclopramide HCl [Reglan 10 mg Tablet] 1 tab PO Q6HP PRN #20 tablet PRN Reason: Metronidazole [Flagyl 500 mg Tablet] 500 mg PO Q8H #21 tablet Referrals: LANCE PALMA MD [ACTIVE STAFF] - Follow up as needed
--- NOTE | 2019-03-19 15:27 | RADIOLOGY REPORT (SQ) ---
EXAM DESCRIPTION: U/S OB TRANSVAG W/DOPPLER COMPLETED DATE/TIME: 03/19/2019 2:29 pm REASON FOR STUDY: PREG, VAG BLEEDING COMPARISON: 02/15/2019 TECHNIQUE: Transabdominal static and realtime grayscale images acquired of the pelvis. Additional se lected spectral and color Doppler images recorded. All images stored on PACs. bHCG: Not reported. CLINICAL DATES: 10 weeks, 0 days LIMITATIONS: None. FINDINGS: FETUS: Single Living intrauterine . ULTRASOUND EGA: 10 weeks, 0 days ULTRASOUND WILIAN: 10/15/2019 EFW: Not applicable less than 20 weeks. CRL: 3.2 cm FHR: 173 beats per minute. SUBCHORIONIC BLEED: Probable subchorionic hemorrhage measuring 1.9 x 1.5 x 0.9 cm. UTERUS: No masses. No anomalies. CERVICAL LENGTH: 3.1 cm Closed. RIGHT ADNEXA: Normal ovary with normal vascular flow. No adnexal free fluid. No adnexal masses. LEFT ADNEXA: Normal ovary with normal vascular flow. Corpus luteum. No adnexal free fluid. No adnexal masses. FREE FLUID: None. OTHER: No other significant finding. IMPRESSION: Single intrauterine gestation at sonographic gestational age of 10 weeks, 0 days. heart rate 173 beats per minute. There is a probable small subchorionic hemorrhage measuring 1.9 cm , not significantly changed compared to prior examination dated 02/15/2019. Trimester of : First - 0 to 13 weeks. TECHNICAL DOCUMENTATION: JOB ID: [id number] [employer]- All Rights Reserved rev Reading location - IP/workstation name: [email or web address]
[2019-03-19 15:28] LABS: APPEARANCE,URINE SLIGHTLY-CLOUDY; BILIRUBIN,URINE NEGATIVE (NEGATIVE); GLUCOSE, URINE NEGATIVE (NEGATIVE); KETONES,URINE NEGATIVE (NEGATIVE); LEUKOCYTE ESTERASE,URINE SMALL (NEGATIVE); NITRITE,URINE NEGATIVE (NEGATIVE); PROTEIN,URINE NEGATIVE (NEGATIVE); URINE SPECIFIC GRAVITY 1.028
[2019-03-19 15:29] LABS: COLOR,URINE YELLOW
[2019-03-19 16:47] VITALS: BP 114/59
[2019-03-19 17:59] LABS: CHLAM PCR NOT DETECTED (NOT DETECT); GON PCR NOT DETECTED (NOT DETECT)
== END 2019-03-19 16:33 | disposition home or self-care (01) ==
LOC: ER 12:30
DX: O46.8X1 Other antepartum hemorrhage, first trimester (principal); O23.591 Infection of other part of genital tract in pregnancy, first trimester; B96.89 Other specified bacterial agents as the cause of diseases classified elsewhere; Z3A.10 10 weeks gestation of pregnancy
CPT/HCPCS: 99284; 96361; 96374; 36415; 84702; 85025; 80053; 81001; 87491; 87591; 76817; 93976; J2765; J7030

== ENCOUNTER 2019-05-19 20:50 | Emergency (ER) | payer SELFPAY ==
[2019-05-19 22:38] LABS: ABSOLUTE BASOPHILS # (AUTO) 0.1 10^3/uL (0.0-0.2); ABSOLUTE EOSINOPHILS # (AUTO) 0.4 10^3/uL (0.0-0.6); ABSOLUTE LYMPHOCYTES (AUTO) 2.5 10^3/uL (0.5-4.7); ABSOLUTE MONOCYTES (AUTO) 0.8 10^3/uL (0.1-1.4); ABSOLUTE NEUT (AUTO) 8.2 10^3/uL (1.7-8.2); BASOPHILS % (AUTO) 0.5 % (0-2); EOSINOPHILS % (AUTO) 3.6 % (0-6); HEMATOCRIT 35.1 % (36.0-47.0); HEMOGLOBIN 11.2 g/dL (12.0-15.5); LYMPHOCYTES % (AUTO) 20.9 % (13-45); MEAN CORPUSCULAR HEMOGLOBIN 23.8 pg (27.0-33.4); MEAN CORPUSCULAR VOLUME 74 fl (80-97); MONOCYTES % (AUTO) 6.7 % (3-13); PLATELET COUNT 280 10^3/uL (150-450); RED BLOOD COUNT 4.71 10^6/uL (3.72-5.28); RED CELL DISTRIBUTION WIDTH 18.2 % (11.5-14.0); SEGMENTED NEUTROPHILS % (AUTO) 68.3 % (42-78); TOTAL CELLS COUNTED % (AUTO) 100 %
[2019-05-19 22:39] LABS: AMORPHOUS SEDIMENT,URINE TRACE /HPF; APPEARANCE,URINE CLOUDY; BILIRUBIN,URINE NEGATIVE (NEGATIVE); COLOR,URINE YELLOW; GLUCOSE, URINE NEGATIVE (NEGATIVE); KETONES,URINE NEGATIVE (NEGATIVE); LEUKOCYTE ESTERASE,URINE LARGE (NEGATIVE); NITRITE,URINE NEGATIVE (NEGATIVE); PROTEIN,URINE NEGATIVE (NEGATIVE); URINE SPECIFIC GRAVITY 1.012; UROBILINOGEN,URINE NEGATIVE mg/dL (<2.0)
[2019-05-19 23:00] LABS: ALANINE AMINOTRANSFERASE 29 U/L (9-52); ALBUMIN 3.5 g/dL (3.5-5.0); ALKALINE PHOSPHATASE 62 U/L (38-126); ANION GAP 7 (5-19); ASPARTATE AMINO TRANSFERASE 22 U/L (14-36); BILIRUBIN,DIRECT 0.1 mg/dL (0.0-0.4); BILIRUBIN,TOTAL 0.1 mg/dL (0.2-1.3); BLOOD UREA NITROGEN 4 mg/dL (7-20); CALCIUM 9.3 mg/dL (8.4-10.2); CARBON DIOXIDE 23 mmol/L (22-30); CHLORIDE 106 mmol/L (98-107); GLUCOSE 88 mg/dL (75-110); LIPASE 58.3 U/L (23-300); POTASSIUM 3.8 mmol/L (3.6-5.0); TOTAL PROTEIN 6.2 g/dL (6.3-8.2)
--- NOTE | 2019-05-19 23:08 | ER Document Report ---
ED Medical Screen (RME) - General Chief Complaint: Abdominal Pain Stated Complaint: STOMACH PAIN <20 WEEKS Time Seen by Provider: 05/19/19 23:05 Primary Care Provider: FRANCIS REILLY [Primary Care Provider] - Follow up as needed Notes: Patient is a 28-year-old female currently 17 weeks presents to the emergency department for generalized upper abdominal pain. Patient states his pain has been for the last 2 days. Patient is denying any nausea, vomiting, fevers, vaginal discharge to include bleeding. Patient denies any dysuria. States she has had "a couple episodes of diarrhea." Patient states when she touches her upper abdomen she feels a "bulge." GENERAL: Alert, interacts well. No acute distress. ABDOMEN: Soft, Non-distended. Bowel sounds present in all 4 quadrants. Area of tenderness noted above umbilicus I have greeted and performed a rapid initial assessment of this patient. A comprehensive ED assessment and evaluation of the patient, analysis of test results and completion of the medical decision making process will be conducted by additional ED providers. I have specifically instructed the patient or family members with the patient to immediately return to any nursing staff should anything change in the patient's condition or with their chief complaint. This medical record was dictated with voice recognizing software. There may be grammatical, syntax errors that are unintended. TRAVEL OUTSIDE OF THE [place] IN LAST 30 DAYS: No - Related Data Allergies/Adverse Reactions: tramadol Allergy (Verified 05/19/19 23:02) seizure Past Medical History - Social History Chew tobacco use (# tins/day): No Frequency of alcohol use: None Drug Abuse: None Family history: Reviewed & Not Pertinent Pulmonary Medical History: Reports: Hx Pneumonia Neurological Medical History: Reports: Hx Migraine Renal/ Medical History: Reports: Hx Ovarian Cysts. Denies: Hx Peritoneal Dialysis Musculoskeltal Medical History: Reports Hx Musculoskeletal Trauma Psychiatric Medical History: Reports: Hx Attention Deficit Hyperactivity Disorder, Hx Bipolar Disorder, Hx Depression Traumatic Medical History: Reports: Hx Fractures - Left fifth finger and nose Past Surgical History: Reports: Hx Adenoidectomy - 2002, Hx Tonsillectomy - Immunizations Immunizations up to date: Yes Hx Diphtheria, Pertussis, Tetanus Vaccination: Yes Physical Exam - Vital signs Vitals: Temp Pulse Resp BP Pulse Ox 98.8 F 84 16 131/66 H 99 05/19/19 21:27 05/19/19 21:27 05/19/19 21:27 05/19/19 21:27 05/19/19 21:27 Course - Vital Signs Vital signs: Temp Pulse Resp BP Pulse Ox 98.8 F 84 16 131/66 H 99 05/19/19 21:27 05/19/19 21:27 05/19/19 21:27 05/19/19 21:27 05/19/19 21:27 - Laboratory Result Diagrams: 05/19/19 22:10 05/19/19 22:10 Laboratory results interpreted by me: 05/19/19 05/19/19 05/19/19 22:10 22:10 22:10 WBC 12.0 H Hgb 11.2 L Hct 35.1 L MCV 74 L MCH 23.8 L RDW 18.2 H Sodium 136.0 L BUN 4 L Creatinine 0.47 L Total Bilirubin 0.1 L Total Protein 6.2 L Ur Leukocyte Esterase LARGE H Doctor's Discharge - Discharge Referrals: LOCALMD,NO [Primary Care Provider] - Follow up as needed
--- NOTE | 2019-05-20 00:41 | RADIOLOGY REPORT (SQ) ---
EXAM DESCRIPTION: US ABDOMEN LIMITED COMPLETED DATE/TME: 05/19/2019 23:06 CLINICAL HISTORY: 28 years, Female, pain, swelling above periumbilical region COMPARISON: None. TECHNIQUE: Limited ultrasound of the midabdomen, in the region of the patient's clinical/palpable abnormality LIMITATIONS: None. FINDINGS: There is a 1.1 x 1.4 x 1.1 cm round echogenic focus superior to the umbilicus in the superficial soft tissues which could reflect tiny lipoma. The line fisher questioned a small superficial fluid collection also superior to the umbilicus which contains internal areas of echogenic foci which could reflect a small area of herniated bowel. Correlate with physical exam. IMPRESSION: 2 areas of concern, as above one of these likely represent superficial lipoma the other possibly represents herniated loop of bowel. copyright 2010 [employer] [address]- All Rights Reserved
--- NOTE | 2019-05-20 00:59 | ER Document Report ---
ED GI/ - General Chief Complaint: Abdominal Pain Stated Complaint: STOMACH PAIN <20 WEEKS Time Seen by Provider: 05/19/19 23:05 Primary Care Provider: FRANCIS REILLY [NO LOCAL MD] - Follow up as needed Notes: Patient is a 28 year old female, at 17 weeks gestation by first trimester ultrasound, that comes emergency department for chief complaint of pain around the bellybutton and an area that appeared to be bulging out. Started yesterday. She denies nausea/vomiting, fever/chills. She has not had a normal bowel movement in several days, she had a small loose one earlier. She denies abdominal surgeries. TRAVEL OUTSIDE OF THE [place] IN LAST 30 DAYS: No - Related Data Allergies/Adverse Reactions: tramadol Allergy (Verified 05/19/19 23:02) seizure Past Medical History - General Information source: Patient - Social History Smoking Status: Former Smoker Chew tobacco use (# tins/day): No Frequency of alcohol use: None Drug Abuse: None Lives with: Family Family History: Reviewed & Not Pertinent, Malignancy, Thyroid Disfunction Patient has suicidal ideation: No Patient has homicidal ideation: No Pulmonary Medical History: Reports: Hx Pneumonia Neurological Medical History: Reports: Hx Migraine Renal/ Medical History: Reports: Hx Ovarian Cysts. Denies: Hx Peritoneal Dialysis Musculoskeletal Medical History: Reports Hx Musculoskeletal Trauma Psychiatric Medical History: Reports: Hx Attention Deficit Hyperactivity Disorder, Hx Bipolar Disorder, Hx Depression Traumatic Medical History: Reports: Hx Fractures - Left fifth finger and nose Past Surgical History: Reports: Hx Adenoidectomy - 2002, Hx Tonsillectomy - Immunizations Immunizations up to date: Yes Hx Diphtheria, Pertussis, Tetanus Vaccination: Yes Review of Systems - Review of Systems Constitutional: No symptoms reported EENT: No symptoms reported Cardiovascular: No symptoms reported Respiratory: No symptoms reported Gastrointestinal: See HPI Genitourinary: See HPI Female Genitourinary: See HPI Musculoskeletal: No symptoms reported Skin: No symptoms reported Hematologic/Lymphatic: No symptoms reported Neurological/Psychological: No symptoms reported Physical Exam - Vital signs Vitals: Temp Pulse Resp BP Pulse Ox 98.8 F 84 16 131/66 H 99 05/19/19 21:27 05/19/19 21:27 05/19/19 21:27 05/19/19 21:27 05/19/19 21:27 - Notes Notes: GENERAL: Alert, interacts well. No acute distress. HEAD: Normocephalic, atraumatic. EYES: Pupils equal, round, and reactive to light. Extraocular movements intact. ENT: Oral mucosa moist, tongue midline. Oropharynx unremarkable. Airway patent. NECK: Full range of motion. Supple. Trachea midline. LUNGS: Clear to auscultation bilaterally, no wheezes, rales, or rhonchi. No respiratory distress. HEART: Regular rate and rhythm. No murmur ABDOMEN: There is a minimal amount of tenderness around the umbilicus, there appears to be a small ventral hernia which was easily reduced and did not return back out. Non-distended. Bowel sounds present in all 4 quadrants. GENITOURINARY: Deferred EXTREMITIES: Moves all 4 extremities spontaneously. No edema, normal radial and dorsalis pedis pulses bilaterally. No cyanosis. BACK: no cervical, thoracic, lumbar midline tenderness. No saddle anesthesia, normal distal neurovascular exam. Moves all extremities in full range of motion. NEUROLOGICAL: Alert and oriented x3. Normal speech. Cranial nerves II through XII grossly intact. PSYCH: Normal affect, normal mood. SKIN: Warm, dry, normal turgor. No rashes or lesions noted. Course - Re-evaluation Re-evalutation: CBC unremarkable, chemistry unremarkable. Urine shows large leukocyte esterase but almost no white blood cells or concerning findings otherwise. No dysuria. Patient is most concerned with the area around the umbilicus, on her initial evaluation appears to be a small ventral/umbilical hernia, this was reduced easily and did not come back out. Patient was asymptomatic on initial evalu ation and on repeat evaluation. Vital signs unremarkable. Ultrasound showing possible lipoma and possible hernia. I discussed with patient. Patient will be referred to [facility], she will follow-up with INDUSTRIAL RELATIONS ANALYST, she will return if she develops INDUSTRIAL RELATIONS ANALYST symptoms such as heavy bleeding, pain, she also return for symptoms of incarceration or any other concerning symptoms. This was discussed in detail. She will be placed on stool softeners to improve her bowel movements and reduce her likelihood of hernia not being reducible. Patient states satisfaction agreement with plan. - Vital Signs Vital signs: Temp Pulse Resp BP Pulse Ox 97.5 F 84 22 H 110/63 100 05/20/19 01:16 05/20/19 01:16 05/20/19 01:16 05/20/19 01:16 05/20/19 01:16 - Laboratory Result Diagrams: 05/19/19 22:10 05/19/19 22:10 Laboratory results interpreted by me: 05/19/19 05/19/19 05/19/19 22:10 22:10 22:10 WBC 12.0 H Hgb 11.2 L Hct 35.1 L MCV 74 L MCH 23.8 L RDW 18.2 H Sodium 136.0 L BUN 4 L Creatinine 0.47 L Total Bilirubin 0.1 L Total Protein 6.2 L Beta HCG, Quant 78446.00 H Ur Leukocyte Esterase LARGE H Discharge - Discharge Clinical Impression: Abdominal pain Qualifiers: Abdominal location: generalized Qualified Code(s): R10.84 - Generalized abdominal pain Condition: Stable Disposition: HOME, SELF-CARE Additional Instructions: Your ultrasound and your evaluation are very suggestive of an umbilical hernia, this appears to have been reduced. I recommend the stool softener for the next several days and a general surgery follow-up for additional management. Avoid heavy lifting. If you see the bulge come out you can gently try to push it back in. If you cannot do this or you develop severe pain or vomiting return to the emergency department. Prescriptions: Docusate Sodium [Colace 100 mg Capsule] 100 mg PO ASDIR PRN #30 capsule PRN Reason: Forms: Return to Work Referrals: LOCAL,NO [NO LOCAL MD] - Follow up as needed
[2019-05-20 01:17] VITALS: BP 110/63
== END 2019-05-20 01:16 | disposition home or self-care (01) ==
LOC: ER 20:50
DX: O26.892 Other specified pregnancy related conditions, second trimester (principal); R10.84 Generalized abdominal pain; Z3A.17 17 weeks gestation of pregnancy; Z88.8 Allergy status to other drugs, medicaments and biological substances
CPT/HCPCS: 36415; 76705; 80053; 81001; 83690; 84702; 85025; 87086; 87088; 87186; 99284

== ENCOUNTER → 2019-08-25 | Outpatient (CLI) | payer MEDICAID | LOC: OD 12:09 | PROVIDERS: ATTEND Advanced Practice Midwife | DX: Z13.1 Encounter for screening for diabetes mellitus (principal) | CPT/HCPCS: 36415; 83036 ==

== ENCOUNTER 2019-09-23 12:40 | Inpatient (IN) | payer MEDICAID ==
[2019-09-23] MEDS ORDERED: BETAMET ACET/BETAMET NA INJ 6 MG/1 ML ONE (13:23)
--- NOTE | 2019-09-23 13:40 | Admission Physical ---
Datetime Report Generated by CPN: 09/23/2019 13:40 CURRENT ADMISSION Chief Complaint: Uterine Contractions Indication for Induction: Not Applicable Admit Impression : , Intrauterine ; No Active Labor Admit Plan: Initiate Labor Protocol Admit Plan- Other: decelerations in FHT ALLERGIES Medication Allergies: Yes Medication Allergies: tramadol/seizure (09/23/2019) Latex: No Latex Allergies Food Allergies: none Environmental Allergies: none OBSTETRICAL HISTORY EDC: 10/15/2019 00:00 : 7 Para: 4 Term: 1 : 3 SAB: 1 IAB: 0 Livin Gestational Diabetes: Yes Rh Sensitization: No Incompetent Cervix: No TRIPP: No Infertility: No ART Treatment: No Uterine Anomaly: No IUGR: No Hx Previous C/S: No Macrosomia: No Hx Loss/Stillborn: No PIH: No Hx : No Placenta Previa/Abruption: No Depression/PP Depression: Yes PTL/PROM: Yes Post Hemorrhage: No Current Procedures: Ultrasound SEE RECORDS Alcohol: No Marijuana : No Cocaine: No Other Illicit Drugs: No Cigarettes: Current Everyday Smoker. [id number] Cigarette Frequency: < 5 per day Advised to Stop: Yes Cigarette Comments: Patient states she smokes 3-4 ciggs a day MEDICAL HISTORY Diabetes: No Diabetes Type: Gestational Diabetes Blood Transfusion: No Pulmonary Disease (Asthma, TB): No Breast Disease: No Hypertension: No Editor At Large Surgery: No Heart Disease: No Hosp/Surgery: Yes Autoimmune Disorder: No Anesthetic Complications: No Kidney Disease: No Abnormal Pap Smear: Yes Neuro/Epilepsy: No Psychiatric Disorders: No Other Medical Diseases: No Hepatitis/Liver Disease: No Significant Family History: No Varicosities/Phlebitis: No Trauma/Violence : No Thyroid Dysfunction: No INFECTIOUS HISTORY Gonorrhea: No Genital Herpes: No Chlamydia: No Tuberculosis: No Syphilis: No Hepatitis: No HIV/AIDS Exposure: No Rash or Viral Illness: No HPV: No PHYSICAL EXAM General: Normal HEENT: Deferred Neurologic: Normal Thyroid: Deferred Heart: Normal Lungs: Normal Breast: Deferred Back: Deferred Abdomen: Normal Genitourinary Exam: Normal Extremities: Normal DTRs: Deferred Pelvic Type: Adequate Vital Signs: Reviewed VAGINAL EXAM Dilatation: 5 Effacement: 60 Station: -2 MEMBRANES Membranes: Intact FETUS A EGA: 36.6 Monitoring: External US FHR- Baseline: 125 Variability: Moderate 6-25bpm Decelerations: Late; Variable FHR Category: Category II Presentation: Vertex Admit Comment: Hx PTD x 3 Hx Asthma Obesity ASCUS pap Hx GDM Lapse in care, Limited PNC GBS neg Vertex verified by bedside sono PLANS FOR LABOR AND DELIVERY Labor and Delivery: None Pain Management: Epidural Feeding Preference: Formula Benefit of Breast Feed Discussed: Yes Circumcision: Yes INFORMED CONSENT Assignment: Kiana Knowles MD Signature: with User ID: [email or web address] : with User ID: [email or web address]
[2019-09-23] MEDS ORDERED: RINGERS SOLUTION,LACTATED 1,000 ML IV PRN (13:56)
[2019-09-23] MEDS ORDERED: RINGERS SOLUTION,LACTATED 1,000 ML IV ONE (13:56)
[2019-09-23 13:58] LABS: APPEARANCE,URINE CLEAR; BILIRUBIN,URINE NEGATIVE (NEGATIVE); COLOR,URINE STRAW; GLUCOSE, URINE NEGATIVE (NEGATIVE); KETONES,URINE NEGATIVE (NEGATIVE); URINE SPECIFIC GRAVITY 1.004
[2019-09-23 13:59] LABS: ADD MANUAL MICROSCOPIC YES; BACTERIA,URINE TRACE /HPF; LEUKOCYTE ESTERASE,URINE TRACE (NEGATIVE); NITRITE,URINE NEGATIVE (NEGATIVE); PROTEIN,URINE NEGATIVE (NEGATIVE); RBC,URINE RARE /HPF; UROBILINOGEN,URINE NEGATIVE mg/dL (<2.0)
[2019-09-23] MEDS ORDERED: BETAMET ACET/BETAMET NA INJ 6 MG/1 ML IM ONE (14:00)
[2019-09-23 14:27] LABS: URINE AMPHETAMINES SCREEN NEGATIVE; URINE BARBITURATES SCREEN NEGATIVE; URINE BENZODIAZEPINES SCREEN NEGATIVE; URINE COCAINE SCREEN NEGATIVE; URINE MARIJUANA (THC) SCREEN NEGATIVE; URINE METHADONE SCREEN NEGATIVE; URINE PHENCYCLIDINE SCREEN NEGATIVE
[2019-09-23] MEDS ORDERED: EPHEDRINE SULFATE INJ 50 MG/1 ML AMPULE ONE (15:19)
[2019-09-23] MEDS ORDERED: FENTANYL CITRATE INJ/PF 100 MCG/2 ML AMPUL ONE (15:19)
[2019-09-23] MEDS ORDERED: FENTANYL/BUPIVACAINE/NS/PF 300 MCG/150 ML RTUINJ EPI ONE (15:19)
[2019-09-23] MEDS ORDERED: PHENYLEPHRINE HCL INJ/PF 10 MG/1 ML SDV ONE (15:19)
[2019-09-23] MEDS ORDERED: BUPIVACAINE HCL 0.25 % INJ/PF (2.5 MG/1 ML) 30 ML VIAL ONE (15:19)
[2019-09-23] MEDS ORDERED: LIDOCAINE 1% INJ-PF (10 MG/ML) 30 ML SDV ONE (15:20)
[2019-09-23] MEDS ORDERED: OXYTOCIN/NORMAL SALINE 20 UNIT/1,000 ML RTUINJ ONE (15:20)
[2019-09-23] MEDS ORDERED: MISOPROSTOL 0.2 MG TABLET ONE (15:20)
[2019-09-23 15:31] LABS: ABSOLUTE EOSINOPHILS # (AUTO) 0.2 10^3/uL (0.0-0.6); ABSOLUTE LYMPHOCYTES (AUTO) 1.7 10^3/uL (0.5-4.7); ABSOLUTE MONOCYTES (AUTO) 0.8 10^3/uL (0.1-1.4); ABSOLUTE NEUT (AUTO) 9.8 10^3/uL (1.7-8.2); BASOPHILS % (AUTO) 0.3 % (0-2); EOSINOPHILS % (AUTO) 1.9 % (0-6); HEMATOCRIT 32.2 % (36.0-47.0); HEMOGLOBIN 10.3 g/dL (12.0-15.5); LYMPHOCYTES % (AUTO) 13.6 % (13-45); MEAN CORPUSCULAR HEMOGLOBIN 23.6 pg (27.0-33.4); MEAN CORPUSCULAR HGB CONC 31.9 g/dL (32.0-36.0); MEAN CORPUSCULAR VOLUME 74 fl (80-97); PLATELET COUNT 267 10^3/uL (150-450); RED BLOOD COUNT 4.36 10^6/uL (3.72-5.28); RED CELL DISTRIBUTION WIDTH 18.1 % (11.5-14.0); SEGMENTED NEUTROPHILS % (AUTO) 78.2 % (42-78); TOTAL CELLS COUNTED % (AUTO) 100 %; WHITE BLOOD COUNT 12.6 10^3/uL (4.0-10.5)
[2019-09-23] MEDS ORDERED: OXYTOCIN/NORMAL SALINE 20 UNIT/1,000 ML RTUINJ IV PRN ×2 (16:55→18:29)
[2019-09-23] MEDS ORDERED: AMPICILLIN SOD/SULBACTAM 3 GM VIAL ONE (18:22)
[2019-09-23] MEDS ORDERED: GLYCERIN/WITCH HAZEL LEAF 1 EACH MED..WIPE TP PRN (18:29)
[2019-09-23] MEDS ORDERED: PROMETHAZINE HCL 25 MG TABLET PO PRN (18:29)
[2019-09-23] MEDS ORDERED: MAGNESIUM HYDROXIDE SUSP 30 ML UDCUP PO PRN (18:29)
[2019-09-23] MEDS ORDERED: DIPH/PERTUSS(ACELL)/TETANUS VAC/PF 0.5 ML SYR (>=10YO) IM PRN (18:29)
[2019-09-23] MEDS ORDERED: PROMETHAZINE HCL INJ 25 MG/1 ML VIAL IV PRN (18:29)
[2019-09-23] MEDS ORDERED: BENZOCAINE/MENTHOL AEROSOL SPRAY 56 ML TOP PRN (18:29)
[2019-09-23] MEDS ORDERED: DIPHENHYDRAMINE HCL 25 MG CAPSULE PO PRN (18:29)
[2019-09-23] MEDS ORDERED: MEASLES,MUMPS&RUBELLA VACC/PF 0.5 ML VIAL SUBCUT PRN (18:29)
[2019-09-23] MEDS ORDERED: ACETAMINOPHEN 325 MG TABLET PO PRN (18:29)
[2019-09-23] MEDS ORDERED: ZOLPIDEM TARTRATE 5 MG TABLET PO PRN (18:29)
[2019-09-23] MEDS ORDERED: DIBUCAINE 1% OINTMENT 56 GM TP PRN (18:29)
[2019-09-23] MEDS ORDERED: PSEUDOEPHEDRINE HCL 30 MG TABLET PO PRN (18:29)
[2019-09-23] MEDS ORDERED: PROMETHAZINE HCL 25 MG SUPP.RECT PR PRN (18:29)
[2019-09-23] MEDS ORDERED: ACETAMINOPHEN WITH CODEINE #3 TABLET PO PRN ×2 (18:29)
[2019-09-23] MEDS ORDERED: NA PHOS,M-B/NA PHOS,DI-BA (ADULT) 133 ML ENEMA PR PRN (18:29)
[2019-09-23] MEDS ORDERED: ACETAMINOPHEN 325 MG TABLET ONE (19:39)
[2019-09-23] MEDS: AMPICILLIN SOD/SULBACTAM 3 GM VIAL IV SCH (21:33)
[2019-09-23] MEDS: IBUPROFEN 800 MG TABLET PO SCH (22:15)
[2019-09-23] MEDS: FAMOTIDINE 20 MG TABLET PO SCH (22:15)
--- NOTE | 2019-09-24 02:21 | Delivery Summary ---
Del Sum A-C Datetime Report Generated by CPN: 09/24/2019 02:21 DELIVERY PERSONNEL DELIVERY PERSONNEL: [id number] Delivery Doctor:: Kiana Knowles MD Anesthesiologist:: Alivia Ashby MD Labor and Delivery Nurse:: Jen Renae RNweekend anchor Nurse:: RUSTY Cutler Nursery Nurse:: Rachel Malik RN Reel Hooker/RESTAURANT ASSISTANT MANAGER: Carolyn Zapata CNA II Reel Hooker/RESTAURANT ASSISTANT MANAGER: Sarah Johnson ST MATERNAL INFORMATION Delivery Anesthesia: Epidural Medications After Delivery: Pitocin Bolus-Please Comment Meds After Delivery Comment: Pitocin 20 units in 1000 ml nss open for bolus after delivery Estimated Blood Loss (ml): 250 Delivery QBL: 250 Delivery QBL Comment: 250 Maternal Complications: Other Complication Details: retained placenta with trailing membranes Provider Comments: VMI delivered in MONTY presentation. Tight nuchal cord delivered through. SHoulders and body delivered without difficulty. Cord doubly clamped and cut and infant to maternal abdomen for NRP. Placenta would not delivery. On vaaginal exam cervix now constricted to 3 cm and majority of placenta retained within the uterus. Manual extraction performed. Zosyn ordered. repeat manual exploration revealed no further retained products after extraction. No perineal lacerations. FF at U. Mother and baby stable upon provider leaving the room LABOR SUMMARY EDC: 10/15/2019 00:00 No. Babies in Womb: 1 Attempted: No Labor Anesthesia: Epidural LABOR INFORMATION Reason for Induction: Not Applicable Onset of Labor: 09/23/2019 11:53 Complete Dilatation: 09/23/2019 18:05 Oxytocin: N/A Group B Beta Strep: Negative Antibiotics # of Doses: n/a Antibiotics Time of Last Dose: n/a Name of Antibiotic Given: n/a Steroids Given: Partial Course Reason Steroids Not Administered: Not Applicable MEMBRANES Membranes Rupture Method: Artificial Rupture of Membranes: 09/23/2019 15:04 Length of Rupture (hr): 3.08 Amniotic Fluid Color: Clear Amniotic Fluid Amount: Large Amniotic Fluid Odor: Normal STAGES OF LABOR Stage 1 hr: 6 Stage 1 min: 12 Stage 2 hr: 0 Stage 2 min: 4 Stage 3 hr: 0 Stage 3 min: 8 Total Time in Labor hr: 6 Total Time in Labor min: 24 VAGINAL DELIVERY Episiotomy: None Laceration #1: None Laceration Extension #1: N/A Laceration Repair: Not Applicable Sponge Count Correct: Yes Sharps Count Correct: Yes CSECTION DELIVERY Primary Indication: N/A Secondary Indication: N/A CSection Incidence: N/A Labor: N/A Elective: N/A CSection Incision: N/A BABY A INFORMATION Delivery Date/Time: 09/23/2019 18:09 Method of Delivery: Vaginal Born in Route : No : N/A Forceps: N/A Vacuum Extraction: N/A Shoulder Dystocia : No PRESENTATION/POSITION BABY A Presentation: Cephalic Cephalic Presentation: Vertex Vertex Position: Right Occipital Anterior Breech Presentation: N/A PLACENTA INFORMATION BABY A Placenta Delivery Time : 09/23/2019 18:17 Placenta Method of Delivery: Manual Removal Placenta Status: Delivered SCORES BABY A Heart Rate 1 min: >100 bpm Resp Effort 1 min: Good Cry Reflex Irritability 1 min: Cough or Sneeze or Pulls Away Muscle Tone 1 min: Active Motion Color 1 min: Blue/Pale Resuscitation Effort 1 min: Tactile Stimulation SCORE 1 MIN: 8 Heart Rate 5 min: >100 bpm Resp Effort 5 min: Good Cry Reflex Irritability 5 min: Cough or Sneeze or Pulls Away Muscle Tone 5 min: Active Motion Color 5 min: Body [place], Extremities Blue Resuscitation Effort 5 min: N/A SCORE 5 MIN: 9 Resuscitation Effort 10 min: N/A INFORMATION BABY A Gestational Age at Delivery: 36.6 Gestational Status: Late - 34- 36.6 Weeks Infant Outcome : Liveborn Condition : Stable Infant Sex: Male WEIGHT/LENGTH BABY A Infant Birthweight (gm): 3107 Infant Weight (lb): 6 Infant Weight (oz): 14 Infant Length (in): 19.50 Length (cm): 49.53 CORD INFORMATION BABY A No. Cord Vessels: 3 Nuchal Cord : Around Neck x1, Tight Cord Blood Taken: Yes-For Storage (Mom's Blood type +) Suction: None ASSESSMENT BABY A Infant Complications: Other Complications- Other: tight nuchal, Physical Findings at Delivery: Within Normal Limits Respirations: Appears Normal Skin to Skin: Yes Forest Ranger Technician/ALS Called : No Infant Care By: Mia Nascimento RN Transferred To: Remains with Mother BABY B INFORMATION : N/A SIGNATURES Signature: with User ID: [email or web address] : Nevaeh was personally available for consultation and serving as supervising physician for the MLP.
[2019-09-24] MEDS: AMPICILLIN SOD/SULBACTAM 3 GM VIAL IV SCH ×2 (05:42→16:46)
[2019-09-24] MEDS: IBUPROFEN 800 MG TABLET PO SCH ×3 (05:42→21:35)
[2019-09-24 08:42] LABS: HEMATOCRIT 30.7 % (36.0-47.0); HEMOGLOBIN 9.4 g/dL (12.0-15.5); MEAN CORPUSCULAR HEMOGLOBIN 22.7 pg (27.0-33.4); MEAN CORPUSCULAR HGB CONC 30.6 g/dL (32.0-36.0); MEAN CORPUSCULAR VOLUME 74 fl (80-97); PLATELET COUNT 248 10^3/uL (150-450); RED BLOOD COUNT 4.15 10^6/uL (3.72-5.28); RED CELL DISTRIBUTION WIDTH 17.8 % (11.5-14.0); WHITE BLOOD COUNT 16.3 10^3/uL (4.0-10.5)
[2019-09-24] MEDS: SENNOSIDES/DOCUSATE 8.6-50 MG 1 EACH TABLET PO SCH (09:52)
[2019-09-24] MEDS: FERROUS SULFATE 325 MG TABLET PO SCH ×2 (09:52→17:46)
[2019-09-24] MEDS: DOCUSATE SODIUM 100 MG CAPSULE PO SCH ×2 (09:52→17:46)
[2019-09-24] MEDS: PRENATAL VITAMIN W DHA CAPSULE PO SCH (09:52)
[2019-09-24] MEDS: FAMOTIDINE 20 MG TABLET PO SCH ×2 (09:52→21:34)
[2019-09-24] MEDS: ACETAMINOPHEN WITH CODEINE #3 TABLET PO PRN ×3 (11:40→21:34)
--- NOTE | 2019-09-24 12:27 | PDOC PROGRESS REPORT ---
Subjective-OB Progress Note for:: 09/24/19 Subjective: 29 yo G7 now P6 s/p ppd 1. Ambulating and voiding without difficulty. Residual pain with motrin, requested stronger medication this am for abdominal cramps. No other concerns at this time Physical Exam (OB) Vital Signs: Temp Pulse Resp BP Pulse Ox 97.6 F 73 18 106/63 100 09/24/19 08:00 09/24/19 08:00 09/24/19 08:00 09/24/19 08:00 09/24/19 08:00 Intake & Output 09/23/19 09/24/19 09/25/19 06:59 06:59 06:59 Intake Total 380 Balance 380 Weight 116.6 kg - General General Appearance: Appears well In distress: None - PIH/Pre-Eclampsia Headache: Absent Epigastric Pain: No Visual Changes: No - Episiotomy/Laceration Site Condition: N/A - Lochia Lochia Amount: Scant < 10 ml Lochia Color: Rubra/Red - Abdomen Description: Soft Hernia Present: No Fundal Description: Firm, Midline Fundal Height: u/u - u/2 - Respiratory Respiratory Status: No respiratory distress - Extremities Upper extremity: Normal inspection Lower extremities: Normal inspection - Neurological Cognition: Normal Orientation: AAOx4 - Psychological Associated symptoms: Normal affect, Normal mood Objective-Diagnostic Laboratory: 09/24/19 07:53 09/23/19 09/23/19 09/23/19 12:52 14:31 14:31 WBC Cancelled RBC Cancelled Hgb Cancelled Hct Cancelled MCV Cancelled MCH Cancelled MCHC Cancelled RDW Cancelled Plt Count Cancelled Seg Neutrophils % Cancelled Urine Color STRAW Urine Appearance CLEAR Urine pH 8.0 Ur Specific [place] 1.004 Urine Protein NEGATIVE Urine Glucose (UA) NEGATIVE Urine Ketones NEGATIVE Urine Blood NEGATIVE Urine Nitrite NEGATIVE Ur Leukocyte Esterase TRACE H Blood Type O POSITIVE Antibody Screen NEGATIVE 09/23/19 09/24/19 14:55 07:53 WBC 12.6 H 16.3 H RBC 4.36 4.15 Hgb 10.3 L 9.4 L Hct 32.2 L 30.7 L MCV 74 L 74 L MCH 23.6 L 22.7 L MCHC 31.9 L 30.6 L RDW 18.1 H 17.8 H Plt Count 267 248 Seg Neutrophils % 78.2 H Urine Color Urine Appearance Urine pH Ur Specific [place] Urine Protein Urine Glucose (UA) Urine Ketones Urine Blood Urine Nitrite Ur Leukocyte Esterase Blood Type Antibody Screen Assessment and Plan(PN) - Assessment and Plan (1) Anemia complicating , third trimester Is this a current diagnosis for this admission?: Yes Plan: increase dietary iron and FeSO4 BID cessation encouraged (2) Smoker Is this a current diagnosis for this admission?: Yes Plan: cessation encouraged (3) Gestational diabetes mellitus (GDM) affecting seventh Is this a current diagnosis for this admission?: Yes Plan: delivered, follow up per guidelines (4) delivery Is this a current diagnosis for this admission?: Yes Plan: delivered (5) History of asthma Is this a current diagnosis for this admission?: Yes Plan: continue precautions (6) Limited care in first trimester Is this a current diagnosis for this admission?: Yes Plan: delivered, discharge planning consult placed (7) labor Qualifiers: labor trimester: third trimester labor delivery status: with delivery in third trimester Fetus number: single or unspecified fetus Qualified Code(s): O60.14X0 - labor third trimester with delivery third trimester, not applicable or unspecified Is this a current diagnosis for this admission?: Yes Plan: routine pp care (8) Retained placenta or membranes without hemorrhage Is this a current diagnosis for this admission?: Yes Plan: continue to monitor for s/s of infection (9) Vaginal delivery Is this a current diagnosis for this admission?: Yes Plan: routine pp care - Time Spent with Patient Time with patient: Less than 15 minutes Smoking Education Provided: Over 3 minutes Medications reviewed and adjusted accordingly: Yes - Disposition Anticipated Discharge: Home Within: within 24 hours
[2019-09-24] MEDS ORDERED: AMPICILLIN SODIUM/SULBACTAM NA 3 GM in NORMAL SALINE 100 ML IV ONE (15:00)
[2019-09-25] MEDS: IBUPROFEN 800 MG TABLET PO SCH (06:02)
[2019-09-25] MEDS: ACETAMINOPHEN WITH CODEINE #3 TABLET PO PRN ×2 (06:02→11:02)
--- NOTE | 2019-09-25 08:44 | PDOC PROGRESS REPORT ---
Subjective-OB Progress Note for:: 09/25/19 Subjective: Doing well, ready to go home, smoker, has help at home and feels safe, bottle feeding, wearing bra Physical Exam (OB) Vital Signs: Temp Pulse Resp BP Pulse Ox 97.8 F 102 H 16 128/69 H 98 09/24/19 20:24 09/24/19 20:24 09/24/19 20:24 09/24/19 20:24 09/24/19 20:24 Intake & Output 09/24/19 09/25/19 09/26/19 06:59 06:59 06:59 Intake Total 380 Balance 380 Weight 116.6 kg - PIH/Pre-Eclampsia Headache: Absent Epigastric Pain: No Visual Changes: No - Lochia Lochia Amount: Scant < 10 ml Lochia Color: Rubra/Red - Abdomen Description: Soft Hernia Present: No Fundal Description: Firm, Midline Fundal Height: u/u - u/2 Objective-Diagnostic Laboratory: 09/24/19 07:53 09/24/19 07:53 WBC 16.3 H RBC 4.15 Hgb 9.4 L Hct 30.7 L MCV 74 L MCH 22.7 L MCHC 30.6 L RDW 17.8 H Plt Count 248 Assessment and Plan(PN) - Assessment and Plan (1) Anemia complicating , third trimester Is this a current diagnosis for this admission?: Yes (2) Smoker Is this a current diagnosis for this admission?: Yes (3) Gestational diabetes mellitus (GDM) affecting seventh Is this a current diagnosis for this admission?: Yes (4) delivery Is this a current diagnosis for this admission?: Yes (5) Retained placenta or membranes without hemorrhage Is this a current diagnosis for this admission?: Yes (6) Vaginal delivery Is this a current diagnosis for this admission?: Yes (7) History of asthma Is this a current diagnosis for this admission?: Yes (8) Limited care in first trimester Is this a current diagnosis for this admission?: Yes - Time Spent with Patient Smoking Education Provided: Over 3 minutes Medications reviewed and adjusted accordingly: Yes - Disposition Anticipated Discharge: Home Within: within 24 hours
--- NOTE | 2019-09-25 08:50 | PDOC DISCHARGE SUMMARY ---
Impression - Admit/DC Date/PCP Admission Date/Primary Care Provider: 09/23/19 13:23 ALTHEA AARON MD Discharge Date: 09/25/19 - Discharge Diagnosis (1) Anemia complicating , third trimester Is this a current diagnosis for this admission?: Yes (2) Smoker Is this a current diagnosis for this admission?: Yes (3) Gestational diabetes mellitus (GDM) affecting seventh Is this a current diagnosis for this admission?: Yes (4) delivery Is this a current diagnosis for this admission?: Yes (5) Retained placenta or membranes without hemorrhage Is this a current diagnosis for this admission?: Yes (6) Vaginal delivery Is this a current diagnosis for this admission?: Yes (7) History of asthma Is this a current diagnosis for this admission?: Yes (8) Limited care in first trimester Is this a current diagnosis for this admission?: Yes - Additional Information Resuscitation Status: Full Code Discharge Diet: As Tolerated, Regular Discharge Activity: Activity As Tolerated, Pelvic Rest Referrals: [facility] [Provider Group] ([facility] 4 weeks) Home Medications: Pnv No.95/Ferrous Fum/Folic AC [ Vitamin Tablet] 1 tab PO DAILY 03/19/19 Ferrous Sulfate [Feosol 325 mg Tablet] 325 mg PO BID tablet 09/25/19 HPI Gestational Age: 36.6 Reason(s) for Admission: Onset of Labor Procedures: Ultrasound Intrapartum Procedure(s): Spontaneous Vaginal Delivery - tight nuchal cord, retained placenta, manually removed,, Uterine Exploration Complication(s): Antibiotics - male, apgars 8/9, wt 6-14 Hospital Course Hospital Course: routine Results Laboratory Results: WBC 16.3 10^3/uL (4.0-10.5) H 09/24/19 07:53 RBC 4.15 10^6/uL (3.72-5.28) 09/24/19 07:53 Hgb 9.4 g/dL (12.0-15.5) L 09/24/19 07:53 Hct 30.7 % (36.0-47.0) L 09/24/19 07:53 MCV 74 fl (80-97) L 09/24/19 07:53 MCH 22.7 pg (27.0-33.4) L 09/24/19 07:53 MCHC 30.6 g/dL (32.0-36.0) L 09/24/19 07:53 RDW 17.8 % (11.5-14.0) H 09/24/19 07:53 Plt Count 248 10^3/uL (150-450) 09/24/19 07:53 Lymph % (Auto) 13.6 % (13-45) 09/23/19 14:55 Titus % (Auto) 6.0 % (3-13) 09/23/19 14:55 Eos % (Auto) 1.9 % (0-6) 09/23/19 14:55 Baso % (Auto) 0.3 % (0-2) 09/23/19 14:55 Absolute Neuts (auto) 9.8 10^3/uL (1.7-8.2) H 09/23/19 14:55 Absolute Lymphs (auto) 1.7 10^3/uL (0.5-4.7) 09/23/19 14:55 Absolute Monos (auto) 0.8 10^3/uL (0.1-1.4) 09/23/19 14:55 Absolute Eos (auto) 0.2 10^3/uL (0.0-0.6) 09/23/19 14:55 Absolute Basos (auto) 0.0 10^3/uL (0.0-0.2) 09/23/19 14:55 Seg Neutrophils % 78.2 % (42-78) H 09/23/19 14:55 Platelet Estimate Cancelled 09/23/19 14:31 Urine Color STRAW 09/23/19 12:52 Urine Appearance CLEAR 09/23/19 12:52 Urine pH 8.0 (5.0-9.0) 09/23/19 12:52 Ur Specific [place] 1.004 09/23/19 12:52 Urine Protein NEGATIVE mg/dL (NEGATIVE) 09/23/19 12:52 Urine Glucose (UA) NEGATIVE mg/dL (NEGATIVE) 09/23/19 12:52 Urine Ketones NEGATIVE mg/dL (NEGATIVE) 09/23/19 12:52 Urine Blood NEGATIVE (NEGATIVE) 09/23/19 12:52 Urine Nitrite NEGATIVE (NEGATIVE) 09/23/19 12:52 Urine Bilirubin NEGATIVE (NEGATIVE) 09/23/19 12:52 Urine Urobilinogen NEGATIVE mg/dL (<2.0) 09/23/19 12:52 Ur Leukocyte Esterase TRACE (NEGATIVE) H 09/23/19 12:52 Urine RBC RARE /HPF 09/23/19 12:52 Urine WBC 1-5 /HPF 09/23/19 12:52 Urine Bacteria TRACE /HPF 09/23/19 12:52 Urine Ascorbic Acid NEGATIVE (NEGATIVE) 09/23/19 12:52 Urine Opiates Screen NEGATIVE 09/23/19 12:52 Urine Methadone Screen NEGATIVE 09/23/19 12:52 Ur Barbiturates Screen NEGATIVE 09/23/19 12:52 Ur Phencyclidine Scrn NEGATIVE 09/23/19 12:52 Ur Amphetamines Screen NEGATIVE 09/23/19 12:52 U Benzodiazepines Scrn NEGATIVE 09/23/19 12:52 Urine Cocaine Screen NEGATIVE 09/23/19 12:52 U Marijuana (THC) Screen NEGATIVE 09/23/19 12:52 RPR NONREACTIVE (NONREACTIVE) 09/23/19 14:55 Slides for Path Review Cancelled 09/23/19 14:31 Blood Type O POSITIVE 09/23/19 14:31 Antibody Screen NEGATIVE 09/23/19 14:31 Plan Health Concerns: smoker, anemia Plan of Treatment: decrease smoking, take iron, iron enriched foods Goals: no smoking around baby Time Spent: Less than 30 Minutes
[2019-09-25] MEDS: FERROUS SULFATE 325 MG TABLET PO SCH (11:01)
[2019-09-25] MEDS: PRENATAL VITAMIN W DHA CAPSULE PO SCH (11:02)
[2019-09-25] MEDS: FAMOTIDINE 20 MG TABLET PO SCH (11:02)
[2019-09-25] MEDS: SENNOSIDES/DOCUSATE 8.6-50 MG 1 EACH TABLET PO SCH (11:02)
[2019-09-25] MEDS: DOCUSATE SODIUM 100 MG CAPSULE PO SCH (11:02)
[2019-09-25 12:04] VITALS: BP 106/63
== END 2019-09-25 12:27 | disposition home or self-care (01) | DRG 807 ==
LOC: LC 12:40 → LR 13:23 → 2S 20:21
PROVIDERS: ADMIT Student in an Organized Health Care Education/Training Program; ATTEND Student in an Organized Health Care Education/Training Program
PROC: 10E0XZZ Delivery of Products of Conception, External Approach (ICD-10-PCS; principal; 2019-09-23)
PROC: 10D17Z9 Manual Extraction of Products of Conception, Retained, Via Natural or Artificial Opening (ICD-10-PCS; 2019-09-23)
DX: O60.14X0 Preterm labor third trimester with preterm delivery third trimester, not applicable or unspecified (principal); Z37.0 Single live birth; O73.0 Retained placenta without hemorrhage; O24.420 Gestational diabetes mellitus in childbirth, diet controlled; O99.334 Smoking (tobacco) complicating childbirth; F17.210 Nicotine dependence, cigarettes, uncomplicated; O76 Abnormality in fetal heart rate and rhythm complicating labor and delivery; O69.1XX0 Labor and delivery complicated by cord around neck, with compression, not applicable or unspecified; O99.02 Anemia complicating childbirth; D64.9 Anemia, unspecified; O99.52 Diseases of the respiratory system complicating childbirth; J45.909 Unspecified asthma, uncomplicated; Z3A.36 36 weeks gestation of pregnancy
CPT/HCPCS: 36415; 80307; 81001; 85025; 85027; 86592; 86850; 86900; 86901; 88307; J0295; J0702; J2370; J2590; J3010; J3490; J7050

== ENCOUNTER 2020-01-20 11:03 | Emergency (ER) | payer SELFPAY ==
[2020-01-20 11:19] VITALS: BP 143/91
[2020-01-20 12:59] LABS: ABSOLUTE EOSINOPHILS # (AUTO) 0.4 10^3/uL (0.0-0.6); ABSOLUTE LYMPHOCYTES (AUTO) 1.6 10^3/uL (0.5-4.7); ABSOLUTE MONOCYTES (AUTO) 0.4 10^3/uL (0.1-1.4); ABSOLUTE NEUT (AUTO) 4.4 10^3/uL (1.7-8.2); BASOPHILS % (AUTO) 0.7 % (0-2); EOSINOPHILS % (AUTO) 5.5 % (0-6); HEMATOCRIT 36.4 % (36.0-47.0); HEMOGLOBIN 11.6 g/dL (12.0-15.5); LYMPHOCYTES % (AUTO) 23.4 % (13-45); MEAN CORPUSCULAR HEMOGLOBIN 23.3 pg (27.0-33.4); MEAN CORPUSCULAR VOLUME 73 fl (80-97); MONOCYTES % (AUTO) 5.8 % (3-13); PLATELET COUNT 307 10^3/uL (150-450); RED BLOOD COUNT 4.99 10^6/uL (3.72-5.28); RED CELL DISTRIBUTION WIDTH 17.3 % (11.5-14.0); SEGMENTED NEUTROPHILS % (AUTO) 64.6 % (42-78); TOTAL CELLS COUNTED % (AUTO) 100 %; WHITE BLOOD COUNT 6.8 10^3/uL (4.0-10.5)
[2020-01-20 13:02] LABS: APPEARANCE,URINE SLIGHTLY-CLOUDY; BILIRUBIN,URINE NEGATIVE (NEGATIVE); COLOR,URINE YELLOW; GLUCOSE, URINE NEGATIVE (NEGATIVE); KETONES,URINE NEGATIVE (NEGATIVE); LEUKOCYTE ESTERASE,URINE NEGATIVE (NEGATIVE); NITRITE,URINE NEGATIVE (NEGATIVE); PROTEIN,URINE NEGATIVE (NEGATIVE); UROBILINOGEN,URINE NEGATIVE mg/dL (<2.0)
[2020-01-20 13:17] LABS: ALBUMIN 3.8 g/dL (3.5-5.0); ALKALINE PHOSPHATASE 65 U/L (38-126); ANION GAP 9 (5-19); ASPARTATE AMINO TRANSFERASE 27 U/L (14-36); BILIRUBIN,DIRECT 0.2 mg/dL (0.0-0.4); BILIRUBIN,TOTAL 0.4 mg/dL (0.2-1.3); BLOOD UREA NITROGEN 9 mg/dL (7-20); CARBON DIOXIDE 25 mmol/L (22-30); CHLORIDE 107 mmol/L (98-107); GLUCOSE 112 mg/dL (75-110); POTASSIUM 4.1 mmol/L (3.6-5.0); TOTAL PROTEIN 6.8 g/dL (6.3-8.2)
--- NOTE | 2020-01-20 14:33 | ER Document Report ---
ED General - General Chief Complaint: Diarrhea Stated Complaint: DIARRHEA/ABDOMINAL PAIN Time Seen by Provider: 01/20/20 12:57 Mode of Arrival: Ambulatory Information source: Patient Notes: Patient is a 29-year-old female presenting to the emergency department chief complaint of abdominal pain and diarrhea patient states that it started yesterday after eating lunch. She reports nausea without vomiting. She states that the pain is mainly to the right upper right abdomen. Patient denies travel history trauma history or obvious sick contacts. TRAVEL OUTSIDE OF THE [place] IN LAST 30 DAYS: No - HPI Onset: Yesterday Onset/Duration: Gradual, Persistent Quality of pain: Pressure, Throbbing Severity: Moderate Pain Level: 2 Associated symptoms: Diarrhea, Nausea. denies: Vomiting Exacerbated by: Denies Relieved by: Denies Similar symptoms previously: No Recently seen / treated by doctor: No - Related Data Allergies/Adverse Reactions: tramadol Allergy (Verified 09/23/19 13:07) seizure Past Medical History - General Information source: Patient - Social History Smoking Status: Current Some Day Smoker Cigarette use (# per day): Yes Smoking Education Provided: Yes Frequency of alcohol use: Rare Drug Abuse: None Family History: Reviewed & Not Pertinent, Malignancy, Thyroid Disfunction Patient has suicidal ideation: No Patient has homicidal ideation: No Pulmonary Medical History: Reports: Hx Pneumonia Neurological Medical History: Reports: Hx Migraine Renal/ Medical History: Reports: Hx Ovarian Cysts. Denies: Hx Peritoneal Dialysis Musculoskeletal Medical History: Reports Hx Musculoskeletal Trauma Psychiatric Medical History: Reports: Hx Attention Deficit Hyperactivity Disorder, Hx Bipolar Disorder, Hx Depression Traumatic Medical History: Reports: Hx Fractures - Left fifth finger and nose Past Surgical History: Reports: Hx Adenoidectomy - 2003, Hx Tonsillectomy - Immunizations Immunizations up to date: Yes Hx Diphtheria, Pertussis, Tetanus Vaccination: Yes Review of Systems - Review of Systems Notes: REVIEW OF SYSTEMS: CONSTITUTIONAL : Denies fever, chills, or sweats. Denies recent illness. EENT: Denies eye, ear, throat, or mouth pain or symptoms. Denies nasal or sinus congestion. CARDIOVASCULAR: Denies chest pain. RESPIRATORY: Denies cough, cold, or chest congestion. Denies shortness of breath, difficulty breathing, or wheezing. GASTROINTESTINAL: Per HPI GENITOURINARY: Denies difficulty urinating, painful urination, burning, frequency, or blood in urine. MUSCULOSKELETAL: Denies neck or back pain or joint pain or swelling. SKIN: Denies rash or skin lesions. HEMATOLOGIC : Denies easy bruising or bleeding. NEUROLOGICAL: Denies altered mental status or loss of consciousness. Denies headache. Denies weakness or paralysis or loss of use of either side. Denies problems with gait or speech. Denies sensory or motor loss. PSYCHIATRIC: Denies suicidal or homicidal ideations 10 Systems are negative unless otherwise specified above Physical Exam - Vital signs Vitals: Temp Pulse Resp BP Pulse Ox 98.3 F 89 18 143/91 H 96 01/20/20 11:18 01/20/20 11:18 01/20/20 11:18 01/20/20 11:18 01/20/20 11:18 - Notes Notes: PHYSICAL EXAMINATION: GENERAL: Well-appearing, well-nourished and in no acute distress. HEAD: Atraumatic, normocephalic. EYES: Pupils equal round and reactive to light, extraocular movements intact, sclera anicteric, conjunctiva are normal. ENT: nares patent, oropharynx clear without exudates. Moist mucous membranes. NECK: Normal range of motion, supple without lymphadenopathy, no appreciable JVD LUNGS: Lungs clear to auscultation bilaterally and equal. No wheezes rales or rhonchi. HEART: Regular rate and rhythm without murmurs ABDOMEN: Patient has mild tenderness to the right upper abdomen no Becker sign no guarding no rebound bowel sounds are present EXTREMITIES: Active full range of motion, no pitting or edema. No cyanosis. 2+ pulses x4 NEUROLOGICAL: No focal neurological deficits. Moves all extremities spontaneously and on command. SKIN: Warm, Dry, and intact. Normal turgor, no rashes or lesions noted. Course - Re-evaluation Re-evalutation: 01/20/20 14:32 I have reviewed the laboratory results which demonstrate no significant findings. There is no signs of pancreatitis or elevated liver, pancreas, gallbladder enzymes. No signs of urinary tract infection or . I discussed these findings with the patient she is agreeable with symptomatic treatment at home and watchful waiting. Patient will be discharged home in stable condition. - Vital Signs Vital signs: Temp Pulse Resp BP Pulse Ox 98.3 F 89 18 143/91 H 96 01/20/20 11:18 01/20/20 11:18 01/20/20 11:18 01/20/20 11:18 01/20/20 11:18 - Laboratory Result Diagrams: 01/20/20 12:40 01/20/20 12:40 Laboratory results interpreted by me: 01/20/20 01/20/20 12:40 12:40 Hgb 11.6 L MCV 73 L MCH 23.3 L RDW 17.3 H Glucose 112 H Discharge - Discharge Clinical Impression: Abdominal pain Qualifiers: Abdominal location: right upper quadrant Qualified Code(s): R10.11 - Right upper quadrant pain Condition: Stable Disposition: HOME, SELF-CARE Instructions: Abdominal Pain ([facility]) Additional Instructions: Return to the emergency department for worsening symptoms to include blood either in vomitus or diarrhea, fever not responding to Tylenol or Motrin, or much more severe pain. Forms: Smoking Cessation Education, Return to Work
== END 2020-01-20 15:12 | disposition home or self-care (01) ==
LOC: ER 11:03
DX: R10.11 Right upper quadrant pain (principal); R19.7 Diarrhea, unspecified; R11.0 Nausea; F17.210 Nicotine dependence, cigarettes, uncomplicated; Z88.6 Allergy status to analgesic agent
CPT/HCPCS: 36415; 80053; 81001; 81025; 83690; 85025; 99284

== ENCOUNTER 2020-02-13 08:14 | Emergency (ER) | payer SELFPAY ==
[2020-02-13] MEDS ORDERED: CEFTRIAXONE INJ 250 MG VIAL IM ONE (09:14)
[2020-02-13] MEDS ORDERED: AZITHROMYCIN 250 MG TABLET PO ONE (09:14)
[2020-02-13] MEDS ORDERED: LIDOCAINE 1% INJ-PF (10 MG/ML) 30 ML SDV INJ ONE (09:14)
--- NOTE | 2020-02-13 09:16 | ER Document Report ---
ED General - General Chief Complaint: Other Stated Complaint: RASH/FOREIGN BODY IN VAGINA Time Seen by Provider: 02/13/20 09:06 TRAVEL OUTSIDE OF THE [place] IN LAST 30 DAYS: No - HPI Notes: Patient is a 29-year-old female no significant past medical history who presents for evaluation of vaginal discharge and a rash in her groin as well as some upper backache that began over the past couple days. Patient states that she did have a tampon in for 5 days that came out today. Patient states that she went on [employer] and was concerned about toxic shock syndrome. She otherwise has been able to eat and drink without difficulty. She is urinating normally. She has had some watery diarrhea. No fever. Denies any headache, neck pain, URI, sore throat, chest pain, palpitations, syncope, cough, shortness of breath, wheeze, dyspnea, abdominal pain, nausea/vomiting, urinary retention, dysuria, hematuria, loss of control of bowel or bladder, numbness/tingling, saddle anesthesia, muscle paralysis/weakness, or rash. - Related Data Allergies/Adverse Reactions: tramadol Allergy (Verified 02/13/20 08:26) seizure Past Medical History - Social History Smoking Status: Current Every Day Smoker Chew tobacco use (# tins/day): No Frequency of alcohol use: None Drug Abuse: None Family History: Reviewed & Not Pertinent, Malignancy, Thyroid Disfunction Patient has suicidal ideation: No Patient has homicidal ideation: No Pulmonary Medical History: Reports: Hx Pneumonia Neurological Medical History: Reports: Hx Migraine Renal/ Medical History: Reports: Hx Ovarian Cysts. Denies: Hx Peritoneal Dialysis Musculoskeletal Medical History: Reports Hx Musculoskeletal Trauma Psychiatric Medical History: Reports: Hx Attention Deficit Hyperactivity Disorder, Hx Bipolar Disorder, Hx Depression Traumatic Medical History: Reports: Hx Fractures - Left fifth finger and nose Past Surgical History: Reports: Hx Adenoidectomy - 2002, Hx Tonsillectomy - Immunizations Immunizations up to date: Yes Hx Diphtheria, Pertussis, Tetanus Vaccination: Yes Review of Systems - Review of Systems -: Yes All other systems reviewed and negative Physical Exam - Vital signs Vitals: Temp Pulse Resp BP Pulse Ox 98.2 F 108 H 16 136/81 H 97 02/13/20 08:18 02/13/20 08:18 02/13/20 08:18 02/13/20 08:18 02/13/20 08:18 - Notes Notes: PHYSICAL EXAMINATION: GENERAL: Well-appearing, well-nourished and in no acute distress. A&Ox4. answers questions appropriately. HEAD: Atraumatic, normocephalic. EYES: Pupils equal round and reactive to light, extraocular movements intact, conjunctiva are normal. ENT: Nares patent, oropharynx clear without exudates. Moist mucous membranes. EAC's clear bilaterally. No tonsillar hypertrophy or erythema. No sinus tenderness. NECK: Normal range of motion, supple without lymphadenopathy. No midline tenderness. Very mild tenderness trap mm b/l. LUNGS: Breath sounds clear to auscultation bilaterally and equal. No wheezes rales or rhonchi. HEART: Regular rate and rhythm without murmurs ABDOMEN: Soft, nontender, nondistended abdomen. No guarding, no rebound. Normal bowel sounds present. CVA tenderness negative bilaterally. Female : No inguinal adenopathy. External genitalia without erythema, lesions, or masses. Vaginal mucosa pink with white discharge. Cervix parous, pink, and without discharge. Uterus is smooth. No adnexal tenderness. No CMT. Accompanied by female tech, Hayley. Musculoskeletal: FROM to passive/active. Strength 5+/5. Extremities: No cyanosis/clubbing/edema b/l. Peripheral pulses 2+. Capillary refill less than 3 seconds. NEUROLOGICAL: Cranial nerves grossly intact. Normal speech, normal gait. Normal sensory, motor exams PSYCH: Normal mood, normal affect. SKIN: there is one small minimally erythemic 0.2cm area (one on each inner thigh), consistent with a hair follicle, no induration/fluctuance/streaks/discharge. Non-tender. Course - Re-evaluation Re-evalutation: 02/13/20 10:55 Patient is an afebrile, well-hydrated, 29-year-old female who presents to the ED with vaginal discharge, suspect BV. Vitals are acceptable without any significant tachycardia, tachypnea, or hypoxia. PE is otherwise unremarkable. See labs. No evidence of TSS at this time. See wet mount results. Chlam/gonorrhea tests are pending. Pt received zithro/rocephin. Patient is nontoxic-appearing is tolerating p.o. without any difficulties. No other labs or imaging warranted at this time based on H&P. Low suspicion/risk for TSS, acute appendicitis, bowel obstruction, acute cholecystitis, acute cholangitis, perforated diverticulitis, incarcerated hernia, pancreatitis, perforated ulcer, peritonitis, sepsis, pelvic inflammatory disease, ectopic , tubo- ovarian abscess, ovarian torsion, or other systemic emergent condition at this time. Patient is aware that her condition can change from initial presentation and she needs to monitor symptoms closely and seek medical attention if any acute changes. I will send her home with prescription for Flagyl. Conservative measures otherwise for symptoms. Recheck with your PCM/OBGYN in 3-5 days. Return to the ED with any worsening/concerning symptoms otherwise as reviewed in discharge. Patient is in agreement. - Vital Signs Vital signs: Temp Pulse Resp BP Pulse Ox 98.2 F 108 H 16 136/81 H 97 02/13/20 08:18 02/13/20 08:18 02/13/20 08:18 02/13/20 08:18 02/13/20 08:18 - Laboratory Result Diagrams: 02/13/20 09:44 02/13/20 09:44 Laboratory results interpreted by me: 02/13/20 09:44 RBC 5.38 H MCV 72 L MCH 23.0 L RDW 18.7 H Eos % (Auto) 7.4 H Procedures - Pelvic Exam Pelvic exam Cultures obtained: Yes Wet prep obtained: Yes Bimanual exam performed: Yes - negative Witnessed by: ty Hardy Discharge - Discharge Clinical Impression: Vaginal discharge, Bacterial vaginosis Condition: Stable Disposition: HOME, SELF-CARE Additional Instructions: Maintain fluid intake Proper hygienic technique Keep the skin clean Safe sexual practices with condoms everytime Tylenol/ibuprofen as needed Check in with the health department this week for further testing if warranted Your chlamydia/gonorrhea tests are pending and you will be notified if positive results; you may call in 1 day for the results as well F/u with your PCM/OBGYN in 3-5 days for a recheck Return to the ED with any development of BRUNSON/fever, trouble with vision, eye redness, worsening pain, urethral discharge, urinary retention, blood in the urine, flank pain, abdominal pain, n/v, Chest Pain, shortness of breath, joint pains, trouble breathing, or any other worsening/concerning symptoms as needed otherwise. Prescriptions: Metronidazole [Flagyl] 500 mg PO BID #14 tablet Forms: Elevated Blood Pressure Referrals: [facility] [Provider Group] - Follow up as needed
[2020-02-13 09:57] LABS: ABSOLUTE BASOPHILS # (AUTO) 0.1 10^3/uL (0.0-0.2); ABSOLUTE EOSINOPHILS # (AUTO) 0.6 10^3/uL (0.0-0.6); ABSOLUTE LYMPHOCYTES (AUTO) 2.4 10^3/uL (0.5-4.7); ABSOLUTE MONOCYTES (AUTO) 0.6 10^3/uL (0.1-1.4); ABSOLUTE NEUT (AUTO) 4.1 10^3/uL (1.7-8.2); BASOPHILS % (AUTO) 0.9 % (0-2); EOSINOPHILS % (AUTO) 7.4 % (0-6); HEMATOCRIT 38.5 % (36.0-47.0); HEMOGLOBIN 12.4 g/dL (12.0-15.5); LYMPHOCYTES % (AUTO) 30.5 % (13-45); MEAN CORPUSCULAR HGB CONC 32.1 g/dL (32.0-36.0); MEAN CORPUSCULAR VOLUME 72 fl (80-97); MONOCYTES % (AUTO) 7.6 % (3-13); PLATELET COUNT 278 10^3/uL (150-450); RED BLOOD COUNT 5.38 10^6/uL (3.72-5.28); RED CELL DISTRIBUTION WIDTH 18.7 % (11.5-14.0); SEGMENTED NEUTROPHILS % (AUTO) 53.6 % (42-78); TOTAL CELLS COUNTED % (AUTO) 100 %; WHITE BLOOD COUNT 7.7 10^3/uL (4.0-10.5)
[2020-02-13 09:58] LABS: BACTERIA (WET MOUNT) 4+ BACTERIA SEEN; EPITHELIALS (WET MOUNT) 3+ EPITHELIALS SEEN; T.VAGINALIS (WET MOUNT) NO TRICHOMONAS SEEN; WBCS (WET MOUNT) 4+ WBCS SEEN; YEAST (WET MOUNT) NO YEAST SEEN
[2020-02-13 10:33] LABS: ALBUMIN 4.2 g/dL (3.5-5.0); ALKALINE PHOSPHATASE 84 U/L (38-126); ANION GAP 11 (5-19); ASPARTATE AMINO TRANSFERASE 27 U/L (14-36); BILIRUBIN,DIRECT 0.4 mg/dL (0.0-0.4); BILIRUBIN,TOTAL 0.5 mg/dL (0.2-1.3); BLOOD UREA NITROGEN 9 mg/dL (7-20); CARBON DIOXIDE 25 mmol/L (22-30); CHLORIDE 105 mmol/L (98-107); CREATINE KINASE 65 U/L (30-135); GLUCOSE 103 mg/dL (75-110); POTASSIUM 4.4 mmol/L (3.6-5.0); TOTAL PROTEIN 7.3 g/dL (6.3-8.2)
[2020-02-13 11:12] VITALS: BP 121/75
[2020-02-13 11:27] LABS: CHLAM PCR NOT DETECTED (NOT DETECT)
== END 2020-02-13 11:13 | disposition home or self-care (01) ==
LOC: ER 08:14
DX: N76.0 Acute vaginitis (principal); B96.89 Other specified bacterial agents as the cause of diseases classified elsewhere; R21 Rash and other nonspecific skin eruption; F17.200 Nicotine dependence, unspecified, uncomplicated; Z88.6 Allergy status to analgesic agent
CPT/HCPCS: 99283; 96372; 36415; 87210; 82550; 85025; 80053; 87491; 87591; J3490; J0696

== ENCOUNTER 2020-04-14 13:53 | Emergency (ER) | payer SELFPAY ==
[2020-04-14] MEDS ORDERED: OXYCODONE-ACETAMINOPHEN 5-325 MG TABLET PO ONE (14:40)
--- NOTE | 2020-04-14 14:43 | ER Document Report ---
ED Medical Screen (RME) - General Chief Complaint: Nose Pain Stated Complaint: NOSE PAIN Time Seen by Provider: 04/14/20 14:34 Mode of Arrival: Ambulatory Information source: Patient Notes: 29-year-old female with no prior history presents with complaints of pain tenderness to nose. Denies trauma. Denies history of MRSA. Denies fever vomiting diarrhea. Reports she has been taking Motrin without relief of symptoms. Patient tip of her nose to the bridge of her nose is tender to palpate with some erythema and swelling to the tip of her nose. I have greeted and performed a rapid initial assessment of this patient. A comprehensive ED assessment and evaluation of the patient, analysis of test results and completion of the medical decision making process will be conducted by additional ED providers. TRAVEL OUTSIDE OF THE [place] IN LAST 30 DAYS: No - Related Data Allergies/Adverse Reactions: tramadol Allergy (Verified 04/14/20 14:35) seizure Home Medications: adderall, clonazepam Past Medical History - Social History Chew tobacco use (# tins/day): No Frequency of alcohol use: None Drug Abuse: None Family history: Reviewed & Not Pertinent Pulmonary Medical History: Reports: Hx Pneumonia Neurological Medical History: Reports: Hx Migraine Renal/ Medical History: Reports: Hx Ovarian Cysts. Denies: Hx Peritoneal Dialysis Musculoskeltal Medical History: Reports Hx Musculoskeletal Trauma Psychiatric Medical History: Reports: Hx Attention Deficit Hyperactivity Disorder, Hx Bipolar Disorder, Hx Depression Traumatic Medical History: Reports: Hx Fractures - Left fifth finger and nose Past Surgical History: Reports: Hx Adenoidectomy - 2003, Hx Tonsillectomy - adenoid - Immunizations Immunizations up to date: Yes Hx Diphtheria, Pertussis, Tetanus Vaccination: Yes Physical Exam - Vital signs Vitals: Temp Pulse Resp BP Pulse Ox 97.9 F 90 14 134/97 H 98 04/14/20 13:56 04/14/20 13:56 04/14/20 13:56 04/14/20 13:56 04/14/20 13:56 Course - Vital Signs Vital signs: Temp Pulse Resp BP Pulse Ox 97.9 F 90 14 134/97 H 98 04/14/20 14:35 04/14/20 13:56 04/14/20 13:56 04/14/20 13:56 04/14/20 13:56
--- NOTE | 2020-04-14 15:19 | RADIOLOGY REPORT (SQ) ---
EXAM DESCRIPTION: CT FACIAL AREA WITH IMAGES COMPLETED DATE/TIME: 04/14/2020 3:10 pm REASON FOR STUDY: nasal septal abscess COMPARISON: None. TECHNIQUE: Post contrast images through the facial bones and orbits windowed for bone and soft tissu e. Additional coronal and sagittal reconstructed images reviewed. All images stored on PACS. All CT scanners at this facility use dose modulation, iterative reconstruction, and/or weight based d osing when appropriate to reduce radiation dose to as low as reasonably achievable (ALARA). [facility]: Dose Right [facility]: CareDose [facility]: Dose Right [facility]: Teradose 4D [facility]: MobileIron CONTRAST TYPE AND DOSE: contrast/concentration: Isovue 350.00 mg/ml; Total Contrast Delivered: 75.0 ml; Total Saline Delivered: 55.0 ml RENAL FUNCTION: None required. The patient is less than 50 years old. RADIATION DOSE: CT Rad equipment meets quality standard of care and radiation dose reduction techniq ues were employed. CTDIvol: 30.4 mGy. DLP: 589 mGy-cm. . LIMITATIONS: None. FINDINGS: FACIAL BONES: No fracture or bone lesion. ORBITS: Intact. No fracture. Symmetric intact globes and retroorbital soft tissues. PARANASAL SINUSES: Clear. No significant mucosal thickening, mass or fluid. No nasal polyps. Maxilla ry sinus outlets are patent. SOFT TISSUES: Scattered cervical nodes most likely reactive. INFERIOR BRAIN: Limited view. No acute findings. OTHER: No other significant finding. IMPRESSION: Scattered small cervical lymph nodes. No focal abscess or inflammatory change. TECHNICAL DOCUMENTATION: JOB ID: [id number] Quality ID # [id number]: Final reports with documentation of one or more dose reduction techniques (e.g., Au tomated exposure control, adjustment of the mA and/or kV according to patient size, use of iterative reconstruction technique) 2010 [employer]- All Rights Reserved Reading location - IP/workstation name: [email or web address]
[2020-04-14] MEDS ORDERED: IBUPROFEN 800 MG TABLET PO ONE (15:57)
[2020-04-14] MEDS ORDERED: SULFAMETHOXAZOLE/TRIMETHOPRIM 800-160 MG TABLET PO ONE (15:57)
[2020-04-14] MEDS ORDERED: CEPHALEXIN 500 MG CAPSULE PO ONE (15:57)
--- NOTE | 2020-04-14 16:01 | ER Document Report ---
HPI - HPI Patient complains to provider of: Nose pain Time Seen by Provider: 04/14/20 15:50 Onset/Duration: Persistent Quality of pain: Achy Pain Level: 2 Context: Patient presents complaining of nose tenderness and swelling for the past 4 days. Patient states that area seems mildly red. Patient denies any fever or injury. Patient denies any history of MRSA. Associated Symptoms: Other - Nose pain. denies: Fever Exacerbated by: Denies Relieved by: Denies Similar symptoms previously: No Recently seen / treated by doctor: No - ROS ROS below otherwise negative: Yes Systems Reviewed and Negative: Yes All other systems reviewed and negative - CONSTITUTIONAL Constitutional: DENIES: Fever, Chills - EENT EENT: DENIES: Sore Throat Notes: Nose tenderness - GASTROINTESTINAL Gastrointestinal: DENIES: Abdominal Pain - REPRODUCTIVE LMP: 04/05/2020 Reproductive: DENIES: : - DERM Skin Color: Erythema Skin Problems: None Past Medical History - General Information source: Patient - Social History Smoking Status: Current Every Day Smoker Chew tobacco use (# tins/day): No Frequency of alcohol use: None Drug Abuse: None Occupation: [employer] Lives with: Family Family History: Reviewed & Not Pertinent, Malignancy, Thyroid Disfunction Patient has homicidal ideation: No Pulmonary Medical History: Reports: Hx Pneumonia Neurological Medical History: Reports: Hx Migraine Renal/ Medical History: Reports: Hx Ovarian Cysts. Denies: Hx Peritoneal Dialysis Musculoskeletal Medical History: Reports Hx Musculoskeletal Trauma Psychiatric Medical History: Reports: Hx Attention Deficit Hyperactivity Disorder, Hx Bipolar Disorder, Hx Depression Traumatic Medical History: Reports: Hx Fractures - Left fifth finger and nose Past Surgical History: Reports: Hx Adenoidectomy - 2002, Hx Tonsillectomy - adenoid - Immunizations Immunizations up to date: Yes Hx Diphtheria, Pertussis, Tetanus Vaccination: Yes Vertical Provider Document - CONSTITUTIONAL Agree With Documented VS: Yes Exam Limitations: No Limitations General Appearance: WD/WN, No Apparent Distress - INFECTION CONTROL TRAVEL OUTSIDE OF THE [place] IN LAST 30 DAYS: No - HEENT HEENT: Atraumatic, Normocephalic Notes: Erythema with mild swelling to the tip of the nose, no wounds noted in the nostril, no facial tenderness, no septal swelling - NECK Neck: Normal Inspection, Supple. negative: Lymphadenopathy-Left, Lymphadenopathy-Right - RESPIRATORY Respiratory: Breath Sounds Normal, No Respiratory Distress - CARDIOVASCULAR Cardiovascular: Regular Rate, Regular Rhythm - BACK Back: Normal Inspection - MUSCULOSKELETAL/EXTREMETIES Musculoskeletal/Extremeties: MAEW - NEURO Level of Consciousness: Awake, Alert, Appropriate Motor/Sensory: No Motor Deficit - DERM Integumentary: Warm, Dry. negative: Abscess Notes: Mild erythema to tip of the nose Course - Re-evaluation Re-evalutation: 04/14/20 15:59 CT scan reviewed, no concern for any drainable abscess. Patient with very minimal swelling and erythema to the tip of the nose. Patient denies any history of MRSA. Will treat for early cellulitis with antibiotics. Patient encouraged to avoid use of facial masks that are rubbing on the nose as we are currently in the COVID-19 pandemic. - Vital Signs Vital signs: Temp Pulse Resp BP Pulse Ox 97.9 F 90 14 134/97 H 98 04/14/20 14:35 04/14/20 13:56 04/14/20 13:56 04/14/20 13:56 04/14/20 13:56 Discharge - Discharge Clinical Impression: Nose cellulitis Condition: Stable Disposition: HOME, SELF-CARE Instructions: Bactroban Ointment ([facility]), Cellulitis ([facility]), Cephalexin ([facility]), Trimethoprim-Sulfa ([facility]) Additional Instructions: Return immediately for any new or worsening symptoms Followup with your primary care provider, call tomorrow to make a followup appointment Prescriptions: Sulfamethoxazole/Trimethoprim [Bactrim Ds Tablet] 1 each PO BID #20 tablet Mupirocin [Bactroban 2% Ointment 22 gm] 1 applic TP TID #22 gm Cephalexin Monohydrate [Keflex 500 mg Capsule] 500 mg PO Q6H 5 Days #20 capsule Naproxen [Naprosyn 250 Nmg Tablet] 1 tab PO BID #14 tablet Forms: Return to Work Referrals: [facility] [Provider Group] - Follow up as needed [facility] [Provider Group] - Follow up as needed
[2020-04-14 16:54] VITALS: BP 119/73
== END 2020-04-14 16:45 | disposition home or self-care (01) ==
LOC: ER 13:53
DX: J34.0 Abscess, furuncle and carbuncle of nose (principal); F17.200 Nicotine dependence, unspecified, uncomplicated
CPT/HCPCS: 70487; 99283

== ENCOUNTER 2020-10-16 13:37 | Emergency (ER) | payer MEDICAID ==
--- NOTE | 2020-10-16 14:07 | ER Document Report ---
ED Medical Screen (RME) - General Chief Complaint: Flu Symptoms Stated Complaint: WEAKNESS Time Seen by Provider: 10/16/20 14:00 TRAVEL OUTSIDE OF THE [place] IN LAST 30 DAYS: No - HPI Notes: Patient is a 30-year-old male with no medical history who presents with shortness of breath and myalgias for the past 3 days. Patient reports weakness, abdominal pain, and sore throat. She denies cough and fever. She states that her son's grandmother and aunt are Covid positive and were tested earlier this week. - Related Data Allergies/Adverse Reactions: tramadol Allergy (Verified 10/16/20 13:58) seizure Past Medical History - Social History Cigarette use (# per day): Yes - 5 Family history: Reviewed & Not Pertinent Pulmonary Medical History: Reports: Hx Pneumonia Neurological Medical History: Reports: Hx Migraine Renal/ Medical History: Reports: Hx Ovarian Cysts. Denies: Hx Peritoneal Dialysis Musculoskeltal Medical History: Reports Hx Musculoskeletal Trauma Psychiatric Medical History: Reports: Hx Attention Deficit Hyperactivity Disorder, Hx Bipolar Disorder, Hx Depression Traumatic Medical History: Reports: Hx Fractures - Left fifth finger and nose Past Surgical History: Reports: Hx Adenoidectomy - 2002, Hx Tonsillectomy - adenoid - Immunizations Immunizations up to date: Yes Hx Diphtheria, Pertussis, Tetanus Vaccination: Yes Physical Exam - Vital signs Vitals: Temp Pulse Resp BP Pulse Ox 98.0 F 108 H 20 134/92 H 97 10/16/20 13:42 10/16/20 13:42 10/16/20 13:42 10/16/20 13:42 10/16/20 13:42 - Respiratory Respiratory status: No respiratory distress Breath sounds: Normal Course - Re-evaluation Re-evalutation: I have greeted and performed a rapid initial assessment of this patient. A comprehensive ED assessment and evaluation of the patient, analysis of test results and completion of medical decision making process will be conducted by an additional ED providers. - Vital Signs Vital signs: Temp Pulse Resp BP Pulse Ox 98.0 F 108 H 20 134/92 H 97 10/16/20 13:42 10/16/20 13:42 10/16/20 13:42 10/16/20 13:42 10/16/20 13:42
[2020-10-16 15:58] LABS: ABSOLUTE BASOPHILS # (AUTO) 0.1 10^3/uL (0.0-0.2); ABSOLUTE EOSINOPHILS # (AUTO) 0.6 10^3/uL (0.0-0.6); ABSOLUTE MONOCYTES (AUTO) 0.6 10^3/uL (0.1-1.4); ABSOLUTE NEUT (AUTO) 6.7 10^3/uL (1.7-8.2); BASOPHILS % (AUTO) 0.6 % (0-2); EOSINOPHILS % (AUTO) 5.6 % (0-6); HEMATOCRIT 42.1 % (36.0-47.0); HEMOGLOBIN 13.7 g/dL (12.0-15.5); LYMPHOCYTES % (AUTO) 27.5 % (13-45); MEAN CORPUSCULAR HEMOGLOBIN 25.1 pg (27.0-33.4); MEAN CORPUSCULAR HGB CONC 32.5 g/dL (32.0-36.0); MEAN CORPUSCULAR VOLUME 77 fl (80-97); MONOCYTES % (AUTO) 5.7 % (3-13); PLATELET COUNT 313 10^3/uL (150-450); RED BLOOD COUNT 5.45 10^6/uL (3.72-5.28); RED CELL DISTRIBUTION WIDTH 17.1 % (11.5-14.0); SEGMENTED NEUTROPHILS % (AUTO) 60.6 % (42-78); TOTAL CELLS COUNTED % (AUTO) 100 %; WHITE BLOOD COUNT 11.1 10^3/uL (4.0-10.5)
[2020-10-16 16:11] LABS: ALBUMIN 4.2 g/dL (3.5-5.0); ALKALINE PHOSPHATASE 83 U/L (38-126); ANION GAP 10 (5-19); ASPARTATE AMINO TRANSFERASE 26 U/L (14-36); BILIRUBIN,DIRECT 0.1 mg/dL (0.0-0.4); BILIRUBIN,TOTAL 0.3 mg/dL (0.2-1.3); BLOOD UREA NITROGEN 7 mg/dL (7-20); CALCIUM 9.5 mg/dL (8.4-10.2); CARBON DIOXIDE 23 mmol/L (22-30); CHLORIDE 103 mmol/L (98-107); GLUCOSE 129 mg/dL (75-110); POTASSIUM 4.4 mmol/L (3.6-5.0); TOTAL PROTEIN 6.9 g/dL (6.3-8.2)
[2020-10-16] MEDS ORDERED: KETOROLAC TROMETHAMINE INJ/PF 30 MG/1 ML SDV IV ONE (16:31)
[2020-10-16] MEDS ORDERED: RINGERS SOLUTION,LACTATED 1,000 ML IV ONE (16:32)
--- NOTE | 2020-10-16 16:37 | ER Document Report ---
ED General - General Chief Complaint: Flu Symptoms Stated Complaint: WEAKNESS Time Seen by Provider: 10/16/20 14:00 TRAVEL OUTSIDE OF THE [place] IN LAST 30 DAYS: No - HPI Notes: 30-year-old female presents with shortness of breath and myalgias. Patient states she has had body aches, feeling drowsy, shortness of breath and a sore throat for the past 3 days. She also reports burning with urination. She states she has a lower abdominal pain, no vomiting or diarrhea. She states she is taken DayQuil, NyQuil and ibuprofen for her symptoms. She has Covid exposures, family numbers were diagnosed positive earlier this week. She denies past medical history. She is a current everyday smoker however has not smoked the past few days due to lack of taste. - Related Data Allergies/Adverse Reactions: tramadol Allergy (Verified 10/16/20 17:04) seizure Past Medical History - General Information source: Patient - Social History Smoking Status: Current Every Day Smoker Cigarette use (# per day): Yes - 5 Family History: Reviewed & Not Pertinent, Malignancy, Thyroid Disfunction Pulmonary Medical History: Reports: Hx Pneumonia Neurological Medical History: Reports: Hx Migraine Renal/ Medical History: Reports: Hx Ovarian Cysts. Denies: Hx Peritoneal Dialysis Musculoskeletal Medical History: Reports Hx Musculoskeletal Trauma Psychiatric Medical History: Reports: Hx Attention Deficit Hyperactivity Disorder, Hx Bipolar Disorder, Hx Depression Traumatic Medical History: Reports: Hx Fractures - Left fifth finger and nose Past Surgical History: Reports: Hx Adenoidectomy - 2002, Hx Tonsillectomy - adenoid - Immunizations Immunizations up to date: Yes Hx Diphtheria, Pertussis, Tetanus Vaccination: Yes Review of Systems - Review of Systems Constitutional: denies: Fever EENT: See HPI Cardiovascular: denies: Chest pain Respiratory: Short of breath. denies: Cough Gastrointestinal: Abdominal pain. denies: Diarrhea, Nausea, Vomiting Genitourinary: Dysuria Female Genitourinary: No symptoms reported Musculoskeletal: Muscle pain Skin: No symptoms reported Hematologic/Lymphatic: No symptoms reported Neurological/Psychological: No symptoms reported Physical Exam - Vital signs Vitals: Temp Pulse Resp BP Pulse Ox 98.0 F 108 H 20 134/92 H 97 10/16/20 13:42 10/16/20 13:42 10/16/20 13:42 10/16/20 13:42 10/16/20 13:42 - General General appearance: Appears well, Alert In distress: None - HEENT Head: Normocephalic, Atraumatic Extraocular movements intact: Yes Pupils: PERRL Neck: Supple - Respiratory Breath sounds: Normal - Cardiovascular Rhythm: Regular Heart sounds: Normal auscultation - Abdominal Inspection: Obese Bowel sounds: Normal Tenderness: Nontender - Extremities General upper extremity: Normal ROM General lower extremity: Normal ROM - Neurological Neuro grossly intact: Yes Cognition: Normal Orientation: AAOx4 - Psychological Associated symptoms: Normal affect - Skin Skin Temperature: Warm Course - Re-evaluation Re-evalutation: 30-year-old female with shortness of breath, myalgias, fatigue and abdominal pain x3 days, started after known Covid exposures. Also reports dysuria. No other GI symptoms expressed. On exam she is well-appearing, afebrile, very slightly tachycardic at 108, abdomen is soft without focal area tenderness, lungs are clear and is 97% on room air. Given benign abdominal exam would not suspect acute intra-abdominal pathology at this time. Discussed with her that likely has Covid, other viral illness such as influenza possible as well. Will obtain swabs and chest x-ray. Also check urine given her report of dysuria and frequent UTIs. Start with LR and Toradol for her symptoms. Counseled on smoking cessation. No significant leukocytosis, no left shift. Electrolytes okay. Creatinine within normal limits. No elevations of T bili or LFTs. Urine does not suggest UTI. Chest x-ray with out opacities. Updated patient on her results and plan to discharge home with continued supportive care. At discharge patient mentions a cloudy vaginal discharge, she states that she believes she might have a yeast infection. I offered patient further examination, she declined stating "I'll just deal with it at home". Discussed with her can trial [id number] yeast treatment. Return precautions given, stable at time of discharge. - Vital Signs Vital signs: Temp Pulse Resp BP Pulse Ox 98.4 F 79 18 140/84 H 98 10/16/20 20:05 10/16/20 20:02 10/16/20 20:02 10/16/20 20:02 10/16/20 20:02 - Laboratory Result Diagrams: 10/16/20 15:30 10/16/20 15:30 Laboratory results interpreted by me: 10/16/20 10/16/20 10/16/20 15:30 15:30 16:40 WBC 11.1 H RBC 5.45 H MCV 77 L MCH 25.1 L RDW 17.1 H Sodium 135.7 L Glucose 129 H Ur Leukocyte Esterase TRACE H - Diagnostic Test Radiology reviewed: Image reviewed, Reports reviewed Discharge - Discharge Clinical Impression: Person under investigation for COVID-19 Disposition: HOME, SELF-CARE Instructions: COVID-19 Guidance for Persons Under Investigation Additional Instructions: Please continue quarantine at home until Covid test result. Return to the emergency department for any concerning worsening symptoms. Forms: Return to Work
--- NOTE | 2020-10-16 17:00 | RADIOLOGY REPORT (SQ) ---
EXAM DESCRIPTION: CHEST SINGLE VIEW IMAGES COMPLETED DATE/TIME: 10/16/2020 4:25 pm REASON FOR STUDY: shortness of breath COMPARISON: None. EXAM PARAMETERS: NUMBER OF VIEWS: One view. TECHNIQUE: Single frontal radiographic view of the chest acquired. RADIATION DOSE: NA LIMITATIONS: None. FINDINGS: LUNGS AND PLEURA: No opacities, masses or pneumothorax. No pleural effusion. MEDIASTINUM AND HILAR STRUCTURES: No masses. Contour normal. HEART AND VASCULAR STRUCTURES: Heart normal in size. Normal vasculature. BONES: No acute findings. HARDWARE: None in the chest. OTHER: No other significant finding. IMPRESSION: NO ACUTE RADIOGRAPHIC FINDING IN THE CHEST. TECHNICAL DOCUMENTATION: JOB ID: [id number] 2010 [employer]- All Rights Reserved Reading location - IP/workstation name: [email or web address]
[2020-10-16 17:27] LABS: A TYPE INFLUENZA AG NEGATIVE (NEGATIVE); B INFLUENZA AG NEGATIVE (NEGATIVE)
[2020-10-16 17:28] LABS: APPEARANCE,URINE SLIGHTLY-CLOUDY; BILIRUBIN,URINE NEGATIVE (NEGATIVE); COLOR,URINE YELLOW; GLUCOSE, URINE NEGATIVE (NEGATIVE); KETONES,URINE NEGATIVE (NEGATIVE); LEUKOCYTE ESTERASE,URINE TRACE (NEGATIVE); NITRITE,URINE NEGATIVE (NEGATIVE); PROTEIN,URINE NEGATIVE (NEGATIVE); URINE SPECIFIC GRAVITY 1.011; UROBILINOGEN,URINE NEGATIVE mg/dL (<2.0)
[2020-10-16 20:05] VITALS: BP 140/84
== END 2020-10-16 20:05 | disposition home or self-care (01) ==
LOC: ER 13:37
DX: R53.1 Weakness (principal); M79.10 Myalgia, unspecified site; R06.02 Shortness of breath; R10.9 Unspecified abdominal pain; Z20.828 Contact with and (suspected) exposure to other viral communicable diseases; F17.210 Nicotine dependence, cigarettes, uncomplicated
CPT/HCPCS: 99284; 96361; 96374; 36415; 87070; 87880; 85025; 87635; 81025; 80053; 81001; 87804; 71045; J1885; J7120; C9803